=== PATIENT | female | born 2000 | race Caucasian/White ===

== ENCOUNTER 2021-03-09 21:44 | Emergency (ER) | payer MEDICAID ==
--- NOTE | 2021-03-09 21:48 | ERPHSYRPT ---
- History of Present Illness Time Seen by Provider: 03/09/21 21:48 Source: patient Exam Limitations: no limitations Physician History: This is a 20-year-old white female who coughed really hard last week and noticed some right lateral rib pain. The pain has been intermittent bad. Today it was the worst and she felt as though the pain should be getting better. She has been exposed to individuals with viral infections. She is not particularly short of breath. Timing/Duration: week(s) (1), intermittent, worse Cough Quality/Degree: mild, dry cough Possible Cause: no prior episodes Modifying Factors: Improves With: deep breath Associated Symptoms: cough Allergies/Adverse Reactions: No Known Drug Allergies Allergy (Unverified 03/09/21 22:11) Travel Risk - International Travel Have you traveled outside of the country in past 3 weeks: No - Coronavirus Screening Are you exhibiting any of the following symptoms?: Yes Symptoms: Cough: New Onset Close contact with a COVID-19 positive Pt in past 14-21 Days: Yes - Review of Systems Constitutional: No Symptoms Eyes: No Symptoms Ears, Nose, & Throat: No Symptoms Respiratory: Cough Cardiac: No Symptoms Abdominal/Gastrointestinal: No Symptoms Genitourinary Symptoms: No Symptoms Musculoskeletal: Other (Right lateral rib pain) Skin: No Symptoms Neurological: No Symptoms Psychological: No Symptoms Endocrine: No Symptoms Hematologic/Lymphatic: No Symptoms Immunological/Allergic: No Symptoms All Other Systems: Reviewed and Negative - Past Medical History Pertinent Past Medical History: Yes - Past Surgical History Past Surgical History: Yes - Nursing Vital Signs Nursing Vital Signs: Initial Vital Signs Temperature 98.4 F 03/09/21 22:11 Pulse Rate 100 H 03/09/21 22:11 Respiratory Rate 22 03/09/21 22:11 Blood Pressure 118/62 03/09/21 22:11 O2 Sat by Pulse Oximetry 100 03/09/21 22:11 Pain Scale Pain Intensity 4 - Physical Exam General Appearance: no apparent distress, alert, anxiety Eye Exam: PERRL/EOMI, eyes nml inspection Ears, Nose, Throat Exam: normal ENT inspection, moist mucous membranes Neck Exam: normal inspection, non-tender, supple, full range of motion Respiratory Exam: normal breath sounds, lungs clear, airway intact, No chest tenderness, No respiratory distress Cardiovascular Exam: regular rate/rhythm, normal heart sounds, normal peripheral pulses Gastrointestinal/Abdomen Exam: soft, normal bowel sounds, No tenderness Pelvic Exam: not done Rectal Exam: not done Back Exam: normal inspection, normal range of motion, No CVA tenderness, No vertebral tenderness Extremity Exam: normal inspection, normal range of motion, pelvis stable Neurologic Exam: alert, oriented x 3, cooperative, kettle cook II-XII nml as tested, sensation nml, No normal mood/affect, No nml cerebellar function, No nml station & gait Skin Exam: normal color, warm, dry Lymphatic Exam: No adenopathy SpO2 Interpretation: normal O2 Delivery: Room Air - Course Nursing assessment & vital signs reviewed: Yes Ordered Tests: Active Orders 24 hr Category Date Time Status CHEST 1 VIEW (PORTABLE) Stat Exams 03/09/21 23:13 Taken COVID AG-BINAX NOW RAPID TEST Stat Lab 03/09/21 22:15 Completed HCG,QUALITATIVE URINE Stat Lab 03/09/21 22:46 Completed INFLUENZA A+B FIDELINA Stat Lab 03/09/21 22:15 Completed UA W/RFX UR CULTURE Stat Lab 03/09/21 22:46 Completed Medication Summary Discontinued Medications Generic Name Dose Route Start Last Admin Trade Name Lauro PRN Reason Stop Dose Admin Trimethoprim/Sulfamethoxazole 1 tab 03/09/21 23:05 03/09/21 23:11 Smz/Tmp Ds Tablet 1 Tablet PO 03/09/21 23:06 1 tab STAT ONE Administration Trimethoprim/Sulfamethoxazole Confirm 03/09/21 23:10 Smz/Tmp Ds Tablet 1 Tablet Administered 03/09/21 23:11 Dose 1 tab PO .STK-MED ONE Lab/Rad Data: Laboratory Results 03/09/21 03/09/21 03/09/21 Range/Units 22:46 22:46 22:15 Urine Color YELLOW (YELLOW) Urine Appearance CLOUDY (CLEAR) Urine pH 6.0 (5-6) Ur Specific [place] 1.012 (1.005-1.025) Urine Protein NEGATIVE (Negative) Urine Ketones NEGATIVE (NEGATIVE) Urine Blood NEGATIVE (0-5) Drew/ul Urine Nitrite NEGATIVE (NEGATIVE) Urine Bilirubin NEGATIVE (NEGATIVE) Urine Urobilinogen 2 (0-1) mg/dL Ur Leukocyte Esterase LARGE (NEGATIVE) Urine WBC (Auto) 16-25 (0-5) /HPF Urine RBC (Auto) 0-2 (0-2) /HPF U Epithel Cells (Auto) FEW (FEW) /HPF Urine Bacteria (Auto) NONE (NEGATIVE) /HPF Urine Mucus (Auto) SLIGHT (NEGATIVE) /HPF Urine Culture Reflexed NO (NO) Urine Glucose NEGATIVE (NEGATIVE) mg/dL Urine HCG, Qual NEGATIVE (Negative) Influenza Type A Ag (NEGATIVE) Influenza Type B Ag (NEGATIVE) SARS-CoV-2 Ag (Rapid) (NEGATIVE) Group A Strep Antibody NOT DETECTED (NEGATIVE) 03/09/21 Range/Units 22:15 Urine Color (YELLOW) Urine Appearance (CLEAR) Urine pH (5-6) Ur Specific [place] (1.005-1.025) Urine Protein (Negative) Urine Ketones (NEGATIVE) Urine Blood (0-5) Drew/ul Urine Nitrite (NEGATIVE) Urine Bilirubin (NEGATIVE) Urine Urobilinogen (0-1) mg/dL Ur Leukocyte Esterase (NEGATIVE) Urine WBC (Auto) (0-5) /HPF Urine RBC (Auto) (0-2) /HPF U Epithel Cells (Auto) (FEW) /HPF Urine Bacteria (Auto) (NEGATIVE) /HPF Urine Mucus (Auto) (NEGATIVE) /HPF Urine Culture Reflexed (NO) Urine Glucose (NEGATIVE) mg/dL Urine HCG, Qual (Negative) Influenza Type A Ag NEGATIVE (NEGATIVE) Influenza Type B Ag NEGATIVE (NEGATIVE) SARS-CoV-2 Ag (Rapid) NEGATIVE (NEGATIVE) Group A Strep Antibody (NEGATIVE) - Progress Progress: unchanged Air Movement: good Progress Note: 03/09/21 23:50 Chest x-ray shows no acute cardiopulmonary process. Blood Culture(s) Obtained: No Antibiotics given: Yes Counseled pt/family regarding: lab results, diagnosis, need for follow-up, rad results - Departure Departure Disposition: Home Clinical Impression: UTI (urinary tract infection) Condition: Stable Critical Care Time: No Additional Instructions: Drink plenty of fluids. Use Tylenol ibuprofen for pain control. Follow-up with your primary care physician for persistent symptoms. Prescriptions: Smz/Tmp Ds Tablet [Bactrim Ds Tablet] 1 udtab PO BID #14 tablet
[2021-03-09 22:46] LABS: INFLUENZA A NEGATIVE (NEGATIVE); INFLUENZA B NEGATIVE (NEGATIVE)
[2021-03-09 22:47] LABS: COVID AG -BINAX NOW RAPID TEST NEGATIVE (NEGATIVE)
[2021-03-09 23:00] LABS: Appearance CLOUDY (CLEAR); Bilirubin NEGATIVE (NEGATIVE); Blood NEGATIVE Ery/ul (0-5); Epithelial Cells FEW /HPF (FEW); Glucose NEGATIVE (NEGATIVE); Ketones NEGATIVE (NEGATIVE); Leukocyte Esterase LARGE (NEGATIVE); Mucus SLIGHT /HPF (NEGATIVE); Nitrite NEGATIVE (NEGATIVE); Protein,Urine Dip NEGATIVE (Negative); RBC 0-2 /HPF (0-2); Specific Gravity 1.012 (1.005-1.025); Urobilinogen 2 mg/dL (0-1)
[2021-03-09] MEDS ORDERED: BACTRIM DS TABLET PO ONE ×2 (23:05→23:10)
[2021-03-09 23:10] VITALS: O2SAT 99
[2021-03-10 00:05] VITALS: BP 106/71; PULSE 67
--- NOTE | 2021-03-10 08:50 | XRAY ---
Indication: Cough. Suspect Covid 19. Comparison: None Portable chest demonstrates normal heart, lungs, and bony thorax with a few incidental tiny calcified granulomas.
[2021-03-10] MEDS ORDERED: DIFLUCAN PO SCH (10:00)
== END 2021-03-10 00:16 | disposition home or self-care (01) ==
LOC: ED 21:44
DX: N39.0 Urinary tract infection, site not specified (principal); R07.81 Pleurodynia; R05.9 Cough, unspecified
CPT/HCPCS: 71045; 81001; 84703; 87400; 87651; 99000; 99284; A9270-GY

== ENCOUNTER 2021-07-20 06:36 | Observation (INO) | payer MEDICAID ==
[2021-07-20 07:27] LABS: Bacteria MODERATE /HPF (NEGATIVE); Epithelial Cells RARE /HPF (FEW); Mucus SLIGHT /HPF (NEGATIVE)
[2021-07-20 07:31] LABS: Appearance CLOUDY (CLEAR); Bilirubin NEGATIVE (NEGATIVE); Dipstick done @ ? MAIN LAB; Glucose NEGATIVE (NEGATIVE); Ketones NEGATIVE (NEGATIVE); Nitrite NEGATIVE (NEGATIVE); Ph 7.5 (5-6); Protein,Urine Dip TRACE (Negative); RBC TRACE-INTACT Ery/ul (0-5); Specific Gravity >=1.030 (1.005-1.025); Urobilinogen 0.2 mg/dL (0-1)
[2021-07-20 07:33] LABS: Urine Cultured Indicated? YES
[2021-07-20] MEDS ORDERED: TORAdol 30 mg Injection IV ONE (08:02)
[2021-07-20] MEDS ORDERED: Zofran 4 MG/2 ML VIAL IV ONE (08:02)
[2021-07-20] MEDS ORDERED: Sodium Chloride 0.9% 1000 ML 1,000 ML IV STA (08:02)
--- NOTE | 2021-07-20 08:08 | ERPHSYRPT ---
- History of Present Illness Time Seen by Provider: 07/20/21 07:15 Source: patient Exam Limitations: no limitations Patient Subjective Stated Complaint: dizziness x2 days off and on, flank pain Triage Nursing Assessment: pt c/o dizziness off and on since Monday, flank pain bilat, frequent urination, headache, body aches and fatigue. Pt denies cough, sob, nausea, but vomited x1 yesterday. Physician History: Patient is an 19-year-old female presents to emergency department with multiple complaints. Patient complains of of dizziness, headache vomiting fatigue nausea myalgias and bilateral flank pain. Symptoms started approximately 2 days ago. Symptoms are progressive. No trauma. No fever. Patient that she is otherwise healthy. No obvious sick contacts. Symptoms are mild to moderate in intensity. No specific worsening or improving factors. Patient voices no other complaints or concerns at this time. Timing/Duration: day(s) (2 days ago) Severity: moderate Modifying Factors: Improves With: nothing Associated Symptoms: nausea, vomiting (Patient vomited once yesterday. Vomit was nonbloody nonbilious), headaches, No shortness of breath, No cough, No fever, No syncope, No seizure Allergies/Adverse Reactions: sodium bicarbonate [From Nasa Mist] Adverse Reaction (Severe, Verified 07/20/21 06:52) sodium chloride [From Nasa Mist] Adverse Reaction (Severe, Verified 07/20/21 06:52) Home Medications: No Reportable Medications [No Reported Medications] 07/20/21 [History] Hx Tetanus, Diphtheria Vaccination/Date Given: Yes Hx Influenza Vaccination/Date Given: No Hx Pneumococcal Vaccination/Date Given: No Immunizations Up to Date: Yes Travel Risk - International Travel Have you traveled outside of the country in past 3 weeks: No - Coronavirus Screening Are you exhibiting any of the following symptoms?: Yes Symptoms: Vomiting/Diarrhea, Headaches/Body Aches/Fatigue Close contact with a COVID-19 positive Pt in past 14-21 Days: No - Vaccine Status Have you recieved a Covid-19 vaccination: No - Review of Systems Constitutional: No Symptoms, No Fever, No Chills Eyes: No Symptoms Ears, Nose, & Throat: No Symptoms Respiratory: No Symptoms, No Cough, No Dyspnea Cardiac: No Symptoms, No Chest Pain, No Edema, No Syncope Abdominal/Gastrointestinal: No Symptoms, No Abdominal Pain, No Nausea, No Vomiting, No Diarrhea Genitourinary Symptoms: No Symptoms, No Dysuria Musculoskeletal: No Symptoms, No Back Pain, No Neck Pain Skin: No Symptoms, No Rash Neurological: No Symptoms, No Dizziness, No Focal Weakness, No Sensory Changes Psychological: No Symptoms Endocrine: No Symptoms Hematologic/Lymphatic: No Symptoms Immunological/Allergic: No Symptoms All Other Systems: Reviewed and Negative - Past Medical History Pertinent Past Medical History: Yes Neurological History: No Pertinent History ENT History: No Pertinent History Cardiac History: No Pertinent History Respiratory History: No Pertinent History Endocrine Medical History: No Pertinent History Musculoskeletal History: Fractures GI Medical History: No Pertinent History History: Other Psycho-Social History: Anxiety, Depression Female Reproductive Disorders: No Pertinent History - Past Surgical History Past Surgical History: Yes Musculoskeletal: Orthopedic Surgery Other Surgical History: rt ankle surgery, kidney stone removal - Social History Smoking Status: Current every day smoker How long have you smoked: 1 yr Exposure to second hand smoke: Yes Drug Use: none Patient Lives Alone: No - Female History Hx Last Menstrual Period: Jun, 2021 Hx Now: No - Nursing Vital Signs Nursing Vital Signs: Initial Vital Signs Temperature 98.9 F 07/20/21 06:43 Pulse Rate 99 H 07/20/21 06:43 Respiratory Rate 18 07/20/21 06:43 Blood Pressure 130/72 07/20/21 06:43 O2 Sat by Pulse Oximetry 98 07/20/21 06:43 Pain Scale Pain Intensity 4 - Physical Exam General Appearance: no apparent distress, alert Eye Exam: PERRL/EOMI, eyes nml inspection Ears, Nose, Throat Exam: normal ENT inspection, TMs normal, pharynx normal, moist mucous membranes Neck Exam: normal inspection, non-tender, supple, full range of motion Respiratory Exam: normal breath sounds, lungs clear, airway intact, No respiratory distress Cardiovascular Exam: regular rate/rhythm, normal heart sounds, normal peripheral pulses Gastrointestinal/Abdomen Exam: soft, normal bowel sounds, other (Mild bilateral flank tenderness to palpation. Vague generalized abdominal pain), No tenderness, No mass Back Exam: normal inspection, normal range of motion, No CVA tenderness, No vertebral tenderness Extremity Exam: normal inspection, normal range of motion, pelvis stable Neurologic Exam: alert, oriented x 3, cooperative, normal mood/affect, nml cer ebellar function, nml station & gait, sensation nml, No motor deficits Skin Exam: normal color, warm, dry, No rash Lymphatic Exam: No adenopathy SpO2 Interpretation: normal SpO2: 98 O2 Delivery: Room Air - Course Nursing assessment & vital signs reviewed: Yes - CT Exams Abdomen/Pelvis CT Interpretation: Tele-radiologist Report (Right renal lobar nephronia) Ordered Tests: Active Orders 24 hr Category Date Time Status CBC W DIFF AM.LAB Lab 07/21/21 04:25 Completed CMP AM.LAB Lab 07/21/21 04:25 Completed Medication Summary Generic Name Dose Route Start Last Admin Trade Name Freq PRN Reason Stop Dose Admin Acetaminophen 650 mg 07/20/21 13:18 07/22/21 01:32 Acetaminophen 325 Mg Tablet PO 08/19/21 13:17 650 mg Q4H PRN PRN Administration PAIN AND/OR FEVER Sodium Chloride 1,000 mls @ 100 mls/hr 07/20/21 13:18 07/21/21 20:10 Sodium Chloride 0.9% 1000 Ml IV 08/19/21 13:17 100 mls/hr .Q10H MARIANA Administration Ceftriaxone Sodium/Dextrose 1 g in 50 mls @ 100 mls/hr 07/21/21 10:00 07/21/21 09:08 Rocephin 1 Gm-D5w 50 Ml Bag IV 07/24/21 09:59 100 mls/hr Q24H10 MARIANA Administration Morphine Sulfate 5 mg 07/20/21 14:35 07/21/21 21:28 Morphine Sulfate 10 Mg/Ml Injection IV 07/25/21 14:34 5 mg Q4H PRN PRN Administration PAIN Ondansetron HCl 4 mg 07/20/21 13:18 07/21/21 13:15 Ondansetron Hcl 4 Mg/2 Ml Vial IV 08/19/21 13:17 4 mg Q6H PRN PRN Administration NAUSEA/VOMITING Discontinued Medications Generic Name Dose Route Start Last Admin Trade Name Freq PRN Reason Stop Dose Admin Sodium Chloride 1,000 mls @ 999 mls/hr 07/20/21 08:02 07/20/21 09:18 Sodium Chloride 0.9% 1000 Ml IV 07/20/21 09:02 Infused .Q1H1M STA Infusion Sodium Chloride Confirm 07/20/21 08:15 Sodium Chloride 0.9% 1000 Ml Administered 07/20/21 08:16 Dose 1,000 mls @ ud .ROUTE .STK-MED ONE Ceftriaxone Sodium/Dextrose 1 g in 50 mls @ 100 mls/hr 07/20/21 10:34 07/20/21 11:11 Rocephin 1 Gm-D5w 50 Ml Bag IV 07/20/21 11:03 Infused STAT STA Infusion Ceftriaxone Sodium/Dextrose Confirm 07/20/21 10:38 Rocephin 1 Gm-D5w 50 Ml Bag Administered 07/20/21 10:39 Dose 1 g in 50 mls @ ud IV .STK-MED ONE Ketorolac Tromethamine 30 mg 07/20/21 08:02 07/20/21 08:16 Ketorolac Tromethamine 30 Mg/Ml Inj IV 07/20/21 08:03 30 mg STAT ONE Administration Ketorolac Tromethamine Confirm 07/20/21 08:15 Ketorolac Tromethamine 30 Mg/Ml Inj Administered 07/20/21 08:16 Dose 30 mg .ROUTE .STK-MED ONE Morphine Sulfate 2 mg 07/20/21 10:43 07/20/21 10:49 Morphine Sulfate 2 Mg/Ml Inj IV 07/20/21 10:44 2 mg STAT ONE Administration Morphine Sulfate Confirm 07/20/21 10:48 Morphine Sulfate 2 Mg/Ml Inj Administered 07/20/21 10:49 Dose 2 mg .ROUTE .STK-MED ONE Nitrofurantoin Macrocrystals 100 mg 07/20/21 09:49 07/20/21 10:39 Nitrofurantoin Macro 100 Mg Capsule PO 07/20/21 09:50 Not Given STAT ONE Ondansetron HCl 4 mg 07/20/21 08:02 07/20/21 08:16 Ondansetron Hcl 4 Mg/2 Ml Vial IV 07/20/21 08:03 4 mg STAT ONE Administration Ondansetron HCl Confirm 07/20/21 08:15 Ondansetron Hcl 4 Mg/2 Ml Vial Administered 07/20/21 08:16 Dose 4 mg .ROUTE .STK-MED ONE Lab/Rad Data: Laboratory Result Diagrams 07/20/21 08:12 07/20/21 08:12 Laboratory Results 07/20/21 07/20/21 07/20/21 Range/Units 11:15 10:27 08:12 WBC (4.0-10.5) x10^3/uL RBC (4.1-5.4) x10^6/uL Hgb (12.0-16.0) g/dL Hct (35-47) % MCV (78-100) fL MCH (26-32) pg MCHC (32-36) g/dL RDW (11.5-14.0) % Plt Count (150-450) x10^3/uL MPV (7.5-11.0) fL Gran % (36.0-66.0) % Immature Gran % (Auto) (0.00-0.4) % Nucleat RBC Rel Count (0.00-0.1) % Eos # (Auto) (0-0.5) x10^3/uL Immature Gran # (Auto) (0.00-0.03) x10^3u/L Absolute Lymphs (auto) (1.0-4.6) x10^3/uL Absolute Monos (auto) (0.0-1.3) x10^3/uL Absolute Nucleated RBC (0.00-0.01) x10^3u/L Lymphocytes % (24.0-44.0) % Monocytes % (0.0-12.0) % Eosinophils % (0.00-5.0) % Basophils % (0.0-0.4) % Absolute Granulocytes (1.4-6.9) x10^3/uL Basophils # (0-0.4) x10^3/uL Sodium (137-145) mmol/L Potassium (3.5-5.1) mmol/L Chloride (98-107) mmol/L Carbon Dioxide (22-30) mmol/L Anion Gap (5-15) MEQ/L BUN (7-17) mg/dL Creatinine (0.52-1.04) mg/dL Estimated GFR ML/MIN Glucose (74-106) mg/dL Calcium (8.4-10.2) mg/dL Total Bilirubin (0.2-1.3) mg/dL AST (14-36) U/L ALT (0-35) U/L Alkaline Phosphatase (38-126) U/L Troponin I < 0.012 < 0.012 (0.000-0.034) ng/mL Serum Total Protein (6.3-8.2) g/dL Albumin (3.5-5.0) g/dL Lipase (23-300) U/L Urinalys Dipstick Clnc Urine Color (YELLOW) Urine Appearance (CLEAR) Urine pH (5-6) Ur Specific [place] (1.005-1.025) POC Urine Protein Conf (Negative) Urine Ketones (NEGATIVE) Urine Nitrite (NEGATIVE) Urine Bilirubin (NEGATIVE) Urine Urobilinogen (0-1) mg/dL Urine Leukocytes (NEGATIVE) Urine WBC (Auto) (0-5) /HPF Urine RBC (Auto) (0-2) /HPF U Epithel Cells (Auto) (FEW) /HPF Urine Bacteria (Auto) (NEGATIVE) /HPF Urine RBC (0-5) Drew/ul Urine Mucus (Auto) (NEGATIVE) /HPF Ur Culture Indicated? Urine Glucose (NEGATIVE) mg/dL Urine HCG, Qual (Negative) Urine Opiates Level (NEGATIVE) Ur Methadone (NEGATIVE) Urine Barbiturates (NEGATIVE) Ur Phencyclidine (PCP) (NEGATIVE) Urine Amphetamine (NEGATIVE) U Benzodiazepine Level (NEGATIVE) Urine Cocaine (NEGATIVE) Urine Marijuana (THC) (NEGATIVE) Influenza Type A Ag NEGATIVE (NEGATIVE) Influenza Type B Ag NEGATIVE (NEGATIVE) RSV (PCR) NEGATIVE (Negative) SARS-CoV-2 (PCR) NEGATIVE (NEGATIVE) 07/20/21 07/20/21 07/20/21 Range/Units 08:12 08:12 07:01 WBC 13.4 H (4.0-10.5) x10^3/uL RBC 4.34 (4.1-5.4) x10^6/uL Hgb 14.1 (12.0-16.0) g/dL Hct 42.5 (35-47) % MCV 97.9 (78-100) fL MCH 32.5 H (26-32) pg MCHC 33.2 (32-36) g/dL RDW 12.5 (11.5-14.0) % Plt Count 224 (150-450) x10^3/uL MPV 10.0 (7.5-11.0) fL Gran % 80.8 H (36.0-66.0) % Immature Gran % (Auto) 0.3 (0.00-0.4) % Nucleat RBC Rel Count 0.0 (0.00-0.1) % Eos # (Auto) 0.03 (0-0.5) x10^3/uL Immature Gran # (Auto) 0.04 H (0.00-0.03) x10^3u/L Absolute Lymphs (auto) 1.20 (1.0-4.6) x10^3/uL Absolute Monos (auto) 1.25 (0.0-1.3) x10^3/uL Absolute Nucleated RBC 0.00 (0.00-0.01) x10^3u/L Lymphocytes % 9.0 L (24.0-44.0) % Monocytes % 9.4 (0.0-12.0) % Eosinophils % 0.2 (0.00-5.0) % Basophils % 0.3 (0.0-0.4) % Absolute Granulocytes 10.80 H (1.4-6.9) x10^3/uL Basophils # 0.04 (0-0.4) x10^3/uL Sodium 137 (137-145) mmol/L Potassium 4.3 (3.5-5.1) mmol/L Chloride 104 (98-107) mmol/L Carbon Dioxide 25 (22-30) mmol/L Anion Gap 12.4 (5-15) MEQ/L BUN 8 (7-17) mg/dL Creatinine 0.62 (0.52-1.04) mg/dL Estimated GFR > 60.0 ML/MIN Glucose 99 (74-106) mg/dL Calcium 8.8 (8.4-10.2) mg/dL Total Bilirubin 1.10 (0.2-1.3) mg/dL AST 17 (14-36) U/L ALT 9 (0-35) U/L Alkaline Phosphatase 58 (38-126) U/L Troponin I (0.000-0.034) ng/mL Serum Total Protein 7.1 (6.3-8.2) g/dL Albumin 4.0 (3.5-5.0) g/dL Lipase 63 (23-300) U/L Urinalys Dipstick Clnc MAIN LAB Urine Color YELLOW (YELLOW) Urine Appearance CLOUDY (CLEAR) Urine pH 7.5 (5-6) Ur Specific [place] >=1.030 (1.005-1.025) POC Urine Protein Conf TRACE (Negative) Urine Ketones NEGATIVE (NEGATIVE) Urine Nitrite NEGATIVE (NEGATIVE) Urine Bilirubin NEGATIVE (NEGATIVE) Urine Urobilinogen 0.2 (0-1) mg/dL Urine Leukocytes SMALL (NEGATIVE) Urine WBC (Auto) 16-25 (0-5) /HPF Urine RBC (Auto) 6-10 (0-2) /HPF U Epithel Cells (Auto) RARE (FEW) /HPF Urine Bacteria (Auto) MODERATE (NEGATIVE) /HPF Urine RBC TRACE-INTACT (0-5) Drew/ul Urine Mucus (Auto) SLIGHT (NEGATIVE) /HPF Ur Culture Indicated? YES Urine Glucose NEGATIVE (NEGATIVE) mg/dL Urine HCG, Qual (Negative) Urine Opiates Level (NEGATIVE) Ur Methadone (NEGATIVE) Urine Barbiturates (NEGATIVE) Ur Phencyclidine (PCP) (NEGATIVE) Urine Amphetamine (NEGATIVE) U Benzodiazepine Level (NEGATIVE) Urine Cocaine (NEGATIVE) Urine Marijuana (THC) (NEGATIVE) Influenza Type A Ag (NEGATIVE) Influenza Type B Ag (NEGATIVE) RSV (PCR) (Negative) SARS-CoV-2 (PCR) (NEGATIVE) 07/20/21 07/20/21 Range/Units 07:00 06:57 WBC (4.0-10.5) x10^3/uL RBC (4.1-5.4) x10^6/uL Hgb (12.0-16.0) g/dL Hct (35-47) % MCV (78-100) fL MCH (26-32) pg MCHC (32-36) g/dL RDW (11.5-14.0) % Plt Count (150-450) x10^3/uL MPV (7.5-11.0) fL Gran % (36.0-66.0) % Immature Gran % (Auto) (0.00-0.4) % Nucleat RBC Rel Count (0.00-0.1) % Eos # (Auto) (0-0.5) x10^3/uL Immature Gran # (Auto) (0.00-0.03) x10^3u/L Absolute Lymphs (auto) (1.0-4.6) x10^3/uL Absolute Monos (auto) (0.0-1.3) x10^3/uL Absolute Nucleated RBC (0.00-0.01) x10^3u/L Lymphocytes % (24.0-44.0) % Monocytes % (0.0-12.0) % Eosinophils % (0.00-5.0) % Basophils % (0.0-0.4) % Absolute Granulocytes (1.4-6.9) x10^3/uL Basophils # (0-0.4) x10^3/uL Sodium (137-145) mmol/L Potassium (3.5-5.1) mmol/L Chloride (98-107) mmol/L Carbon Dioxide (22-30) mmol/L Anion Gap (5-15) MEQ/L BUN (7-17) mg/dL Creatinine (0.52-1.04) mg/dL Estimated GFR ML/MIN Glucose (74-106) mg/dL Calcium (8.4-10.2) mg/dL Total Bilirubin (0.2-1.3) mg/dL AST (14-36) U/L ALT (0-35) U/L Alkaline Phosphatase (38-126) U/L Troponin I (0.000-0.034) ng/mL Serum Total Protein (6.3-8.2) g/dL Albumin (3.5-5.0) g/dL Lipase (23-300) U/L Urinalys Dipstick Clnc Urine Color (YELLOW) Urine Appearance (CLEAR) Urine pH (5-6) Ur Specific [place] (1.005-1.025) POC Urine Protein Conf (Negative) Urine Ketones (NEGATIVE) Urine Nitrite (NEGATIVE) Urine Bilirubin (NEGATIVE) Urine Urobilinogen (0-1) mg/dL Urine Leukocytes (NEGATIVE) Urine WBC (Auto) (0-5) /HPF Urine RBC (Auto) (0-2) /HPF U Epithel Cells (Auto) (FEW) /HPF Urine Bacteria (Auto) (NEGATIVE) /HPF Urine RBC (0-5) Drew/ul Urine Mucus (Auto) (NEGATIVE) /HPF Ur Culture Indicated? Urine Glucose (NEGATIVE) mg/dL Urine HCG, Qual NEGATIVE (Negative) Urine Opiates Level NEGATIVE (NEGATIVE) Ur Methadone NEGATIVE (NEGATIVE) Urine Barbiturates NEGATIVE (NEGATIVE) Ur Phencyclidine (PCP) NEGATIVE (NEGATIVE) Urine Amphetamine NEGATIVE (NEGATIVE) U Benzodiazepine Level NEGATIVE (NEGATIVE) Urine Cocaine NEGATIVE (NEGATIVE) Urine Marijuana (THC) POSITIVE (NEGATIVE) Influenza Type A Ag (NEGATIVE) Influenza Type B Ag (NEGATIVE) RSV (PCR) (Negative) SARS-CoV-2 (PCR) (NEGATIVE) - Progress Progress: improved Progress Note: Patient reassessed. Pain improved. Work-up reveals a nephronia/nephritis/UTI. Antibiotics administered. Patient received a gram of Rocephin. Patient will require admission for further evaluation and treatment. Case discussed with Dr. Robles who accepts admission to observation. Plan of care discussed with benjamin gonzalez. She agrees to admission [facility] for further evaluation and treatment. Portions of this note were created with voice recognition technology. There may be grammatical, spelling, punctuation or sound alike errors 07/22/21 02:53 Discussed with : Chen Will see patient in: hospital (observation) Counseled pt/family regarding: lab results, diagnosis, rad results - Departure Departure Disposition: Observation Clinical Impression: Nephronia UTI (urinary tract infection) Qualifiers: Urinary tract infection type: acute cystitis Hematuria presence: with hematuria Qualified Code(s): N30.01 - Acute cystitis with hematuria Leukocytosis Qualifiers: Leukocytosis type: unspecified Qualified Code(s): D72.829 - Elevated white blood cell count, unspecified Condition: Stable Critical Care Time: No
[2021-07-20] MEDS ORDERED: Zofran 4 MG/2 ML VIAL ONE (08:15)
[2021-07-20] MEDS ORDERED: TORAdol 30 mg Injection ONE (08:15)
[2021-07-20] MEDS ORDERED: Sodium Chloride 0.9% 1000 ML 1,000 ML ONE (08:15)
[2021-07-20 08:31] LABS: Basophil (Absolute #) 0.04 x10^3/uL (0-0.4); Eosinophil % 0.2 % (0.00-5.0); Eosinophil (Absolute #) 0.03 x10^3/uL (0-0.5); Hematocrit 42.5 % (35-47); Hemoglobin 14.1 g/dL (12.0-16.0); Mean Cell Volume 97.9 fL (78-100); Mean Corpuscular Hemoglobin 32.5 pg (26-32); Mean Corpuscular Hgb Concent. 33.2 g/dL (32-36); Monocyte (Absolute #) 1.25 x10^3/uL (0.0-1.3); Monocytes % 9.4 % (0.0-12.0); Neutrophil % 80.8 % (36.0-66.0); Platelet Count 224 x10^3/uL (150-450); Red Blood Count 4.34 x10^6/uL (4.1-5.4); Red Cell Distribution Width 12.5 % (11.5-14.0); White Blood Count 13.4 x10^3/uL (4.0-10.5)
[2021-07-20 08:32] LABS: ALKALINE PHOSPHATASE 58 U/L (38-126); ANION GAP 12.4 MEQ/L (5-15); BLOOD UREA NITROGEN 8 mg/dL (7-17); CHLORIDE 104 mmol/L (98-107); Calcium 8.8 mg/dL (8.4-10.2); Carbon Dioxide 25 mmol/L (22-30); Creatinine 1 0.62 mg/dL (0.52-1.04); EST GLOMERULAR FILTRATION RATE > 60.0 ML/MIN; Glucose 99 mg/dL (74-106); LIPASE 63 U/L (23-300); Potassium 4.3 mmol/L (3.5-5.1); SGOT/AST 17 U/L (14-36); SGPT/ALT 9 U/L (0-35); SODIUM 137 mmol/L (137-145); Total Protein 7.1 g/dL (6.3-8.2)
--- NOTE | 2021-07-20 09:22 | XRAY ---
Indication: Right lower quadrant pain. Nausea and vomiting. Multiple contiguous axial images obtained through the abdomen and pelvis using 80 cc Isovue 370 contrast. Comparison: None Lung bases clear. Heart not enlarged. Noncontrasted stomach and bowel loops appear nonobstructed with normal appendix. No free fluid/air. Right mid kidney demonstrates small wedge-shaped focus of hypoattenuation favoring lobar nephronia. No free fluid/air. Remaining liver, gallbladder, pancreas, spleen, adrenal glands, kidneys, ureters, uterus, and aorta appear unremarkable. No pathologic retroperitoneal lymphadenopathy. Osseous structures intact. Impression: Right renal lobar nephronia. Remaining CT abdomen/pelvis with contrast exam is negative.
[2021-07-20] MEDS ORDERED: Macrobid 100MG Capsule PO ONE (09:49)
[2021-07-20] MEDS ORDERED: ROCEPHIN 1 Gm-D5w 50 ml Bag** 1 G/50 ML IVPB IV STA (10:34)
[2021-07-20] MEDS ORDERED: ROCEPHIN 1 Gm-D5w 50 ml Bag** 1 G/50 ML IVPB IV ONE (10:38)
[2021-07-20] MEDS ORDERED: MORPHINE SULFATE 2 MG INJ IV ONE (10:43)
[2021-07-20] MEDS ORDERED: MORPHINE SULFATE 2 MG INJ ONE (10:48)
[2021-07-20 12:11] LABS: INFLUENZA A NEGATIVE (NEGATIVE); INFLUENZA B NEGATIVE (NEGATIVE); RESPIRATORY SYNCTIAL VIRUS NEGATIVE (Negative); SARS-CoV-2 Xpert Express NEGATIVE (NEGATIVE)
[2021-07-20] MEDS ORDERED: Zofran 4 MG/2 ML VIAL IV PRN (13:18)
[2021-07-20] MEDS: TYLENOL 325 MG PO PRN (13:55)
[2021-07-20] MEDS: Sodium Chloride 0.9% 1000 ML 1,000 ML IV SCH ×2 (13:56→23:48)
[2021-07-20] MEDS: MORPHINE SULFATE 10 MG/ML IV PRN ×2 (14:52→20:23)
[2021-07-20 21:46] LABS: Amphetamine,Urine NEGATIVE (NEGATIVE); Barbiturate,Urine NEGATIVE (NEGATIVE); Benzodiazepine,Urine NEGATIVE (NEGATIVE); Cocaine,Urine NEGATIVE (NEGATIVE); Methadone,Urine NEGATIVE (NEGATIVE); Opiate,Urine NEGATIVE (NEGATIVE); PCP,Urine NEGATIVE (NEGATIVE); THC,Urine POSITIVE (NEGATIVE)
[2021-07-21] MEDS: MORPHINE SULFATE 10 MG/ML IV PRN ×5 (04:13→21:28)
[2021-07-21] MEDS: TYLENOL 325 MG PO PRN (04:14)
[2021-07-21 05:25] LABS: Absolute Neutrophil Ct (ANC) 7.23 x10^3/uL (1.4-6.9); Basophil (Absolute #) 0.03 x10^3/uL (0-0.4); Eosinophil % 0.4 % (0.00-5.0); Eosinophil (Absolute #) 0.04 x10^3/uL (0-0.5); Hemoglobin 12.5 g/dL (12.0-16.0); Lymphocyte (Absolute #) 2.05 x10^3/uL (1.0-4.6); Lymphocytes % 19.4 % (24.0-44.0); Mean Cell Volume 97.1 fL (78-100); Mean Corpuscular Hemoglobin 32.8 pg (26-32); Mean Corpuscular Hgb Concent. 33.8 g/dL (32-36); Mean Platelet Volume 10.5 fL (7.5-11.0); Monocyte (Absolute #) 1.21 x10^3/uL (0.0-1.3); Monocytes % 11.4 % (0.0-12.0); Neutrophil % 68.2 % (36.0-66.0); Platelet Count 177 x10^3/uL (150-450); Red Blood Count 3.81 x10^6/uL (4.1-5.4); Red Cell Distribution Width 12.4 % (11.5-14.0); White Blood Count 10.6 x10^3/uL (4.0-10.5)
[2021-07-21 05:48] LABS: ALBUMIN 2.8 g/dL (3.5-5.0); ALKALINE PHOSPHATASE 46 U/L (38-126); ANION GAP 9.7 MEQ/L (5-15); BLOOD UREA NITROGEN 7 mg/dL (7-17); CHLORIDE 106 mmol/L (98-107); Calcium 7.9 mg/dL (8.4-10.2); Carbon Dioxide 22 mmol/L (22-30); EST GLOMERULAR FILTRATION RATE > 60.0 ML/MIN; Glucose 91 mg/dL (74-106); Potassium 3.7 mmol/L (3.5-5.1); SGOT/AST 16 U/L (14-36); SGPT/ALT 8 U/L (0-35); SODIUM 134 mmol/L (137-145); Total Protein 5.5 g/dL (6.3-8.2)
--- NOTE | 2021-07-21 08:30 | PCM.HP ---
History of Present Illness - Chief Complaint Chief Complaint: Nephronia, urinary tract infection, flank pain History of Present Illness: is a 20 year old female pt of clinic at [place] with hx renal stones who was admitted through ER yesterday with UTI, leukocytosis, and nephronia. Sh yocasta started feeling ill 3d ago; was shopping in [employer] and had tunnel vision, had to sit down for about 30 min for it to resolve. The next day she was sore and just didn't feel well. She denies having had dysuria, but her urine has been really dark recently. Yesterday she had increased R flank and R lbp, 9/10, so came to ER. She was found to have 16-25 WBC in her urine. CT abd/pelvis with lobar nephronia on the R. This morning she had temp to 101.8. Otherwise her vital signs were stable. Denies nausea this morning. Pain is currently 2/10, she states feeling better when lying down. She did not sleep well overnight, but did sleep this morning some. As a child, she had and episode of nephrolithiasis at 10 yrs old (had to have stone removed from her urethra) and 14 years old (had bilateral stones removed; was admitted at [facility]). She was told at that time that she still had "flakes" that could evolve into larger stones. - Review of Systems Constitutional: Fever Abdominal/Gastrointestinal: Nausea Genitourinary Symptoms: Flank Pain Musculoskeletal: Myalgias Neurological: Dizziness Psychological: Anxiety (chronic, but seems to be ok here per pt) All Other Systems: Reviewed and Negative Medications & Allergies Home Medications: Home Medication List No Reportable Medications [No Reported Medications] 07/20/21 [History Confirmed 07/20/21] Allergies/Adverse Reactions: Allergies Allergy/AdvReac Type Severity Reaction Status Date / Time sodium bicarbonate AdvReac Severe Verified 07/20/21 06:52 [From Nasa Mist] sodium chloride AdvReac Severe Verified 07/20/21 06:52 [From Nasa Mist] - Past Medical History Past Medical History: Yes Neurological History: No Pertinent History ENT History: No Pertinent History Cardiac History: No Pertinent History Respiratory History: No Pertinent History Endocrine Medical History: No Pertinent History Musculoskelatal History: Fractures GI Medical History: No Pertinent History History: Other Pyscho-Social History: Anxiety, Depression Reproductive Disorders: No Pertinent History, Menstrual Problems Comment: kidney stones as child - Female History Hx Last Menstrual Period: early Jun, 2021 Are you now?: No - Past Surgical History Past Surgical History: Yes Musculskeletal Surgical Hx: Orthopedic Surgery Other Surgical History: rt ankle surgery, kidney stone removal - Social History Smoking Status: Current every day smoker How long have you smoked: 1 yr Exposure to second hand smoke: Yes Alcohol: None, Rarely Drug Use: none - Physical Exam Vital Signs: Vital Signs - 24 hr Temp Pulse Resp BP Pulse Ox 07/21/21 07:27 99.0 F 65 10 L 112/63 98 07/21/21 04:00 101.8 F 85 16 121/68 98 07/21/21 00:00 99.1 F 81 22 105/51 97 07/20/21 21:00 98.9 F 79 21 107/69 98 07/20/21 16:20 98/53 07/20/21 16:00 98.7 F 81 20 111/68 98 07/20/21 13:09 98.7 F 81 20 111/68 98 07/20/21 12:06 97.5 F 66 20 94/53 98 07/20/21 11:04 97.9 F 80 20 104/63 98 07/20/21 10:43 98 07/20/21 10:10 98.4 F 78 20 128/70 98 07/20/21 09:20 79 20 117/71 97 07/20/21 08:50 85 18 117/71 98 General Appearance: no apparent distress, alert Neurologic Exam: oriented x 3, cooperative Eye Exam: eyes nml inspection Ears, Nose, Throat Exam: moist mucous membranes Neck Exam: normal inspection Respiratory Exam: normal breath sounds, lungs clear, No crackles/rales, No rhonchi, No wheezing Cardiovascular Exam: regular rate/rhythm, normal heart sounds, No murmur Gastrointestinal/Abdomen Exam: soft, normal bowel sounds, tenderness (RUQ), No distention, No mass, No guarding, No rebound Back Exam: normal inspection, CVA tenderness (bilat; R sided pain even with percussion on the L), No rash Extremity Exam: normal inspection, No pedal edema, No swelling Skin Exam: normal color, warm, dry, No rash Results - Labs Lab/Micro Results: Lab Results-Last 24 Hours 07/20/21 07/20/21 07/20/21 Range/Units 06:57 08:12 08:12 WBC 13.4 H (4.0-10.5) x10^3/uL RBC 4.34 (4.1-5.4) x10^6/uL Hgb 14.1 (12.0-16.0) g/dL Hct 42.5 (35-47) % MCV 97.9 (78-100) fL MCH 32.5 H (26-32) pg MCHC 33.2 (32-36) g/dL RDW 12.5 (11.5-14.0) % Plt Count 224 (150-450) x10^3/uL MPV 10.0 (7.5-11.0) fL Gran % 80.8 H (36.0-66.0) % Immature Gran % (Auto) 0.3 (0.00-0.4) % Nucleat RBC Rel Count 0.0 (0.00-0.1) % Eos # (Auto) 0.03 (0-0.5) x10^3/uL Immature Gran # (Auto) 0.04 H (0.00-0.03) x10^3u/L Absolute Lymphs (auto) 1.20 (1.0-4.6) x10^3/uL Absolute Monos (auto) 1.25 (0.0-1.3) x10^3/uL Absolute Nucleated RBC 0.00 (0.00-0.01) x10^3u/L Lymphocytes % 9.0 L (24.0-44.0) % Monocytes % 9.4 (0.0-12.0) % Eosinophils % 0.2 (0.00-5.0) % Basophils % 0.3 (0.0-0.4) % Absolute Granulocytes 10.80 H (1.4-6.9) x10^3/uL Basophils # 0.04 (0-0.4) x10^3/uL Sodium 137 (137-145) mmol/L Potassium 4.3 (3.5-5.1) mmol/L Chloride 104 (98-107) mmol/L Carbon Dioxide 25 (22-30) mmol/L Anion Gap 12.4 (5-15) MEQ/L BUN 8 (7-17) mg/dL Creatinine 0.62 (0.52-1.04) mg/dL Estimated GFR > 60.0 ML/MIN Glucose 99 (74-106) mg/dL Calcium 8.8 (8.4-10.2) mg/dL Total Bilirubin 1.10 (0.2-1.3) mg/dL AST 17 (14-36) U/L ALT 9 (0-35) U/L Alkaline Phosphatase 58 (38-126) U/L Troponin I (0.000-0.034) ng/mL Serum Total Protein 7.1 (6.3-8.2) g/dL Albumin 4.0 (3.5-5.0) g/dL Lipase 63 (23-300) U/L Urine Opiates Level NEGATIVE (NEGATIVE) Ur Methadone NEGATIVE (NEGATIVE) Urine Barbiturates NEGATIVE (NEGATIVE) Ur Phencyclidine (PCP) NEGATIVE (NEGATIVE) Urine Amphetamine NEGATIVE (NEGATIVE) U Benzodiazepine Level NEGATIVE (NEGATIVE) Urine Cocaine NEGATIVE (NEGATIVE) Urine Marijuana (THC) POSITIVE (NEGATIVE) Influenza Type A Ag (NEGATIVE) Influenza Type B Ag (NEGATIVE) RSV (PCR) (Negative) SARS-CoV-2 (PCR) (NEGATIVE) 07/20/21 07/20/21 07/20/21 Range/Units 08:12 10:27 11:15 WBC (4.0-10.5) x10^3/uL RBC (4.1-5.4) x10^6/uL Hgb (12.0-16.0) g/dL Hct (35-47) % MCV (78-100) fL MCH (26-32) pg MCHC (32-36) g/dL RDW (11.5-14.0) % Plt Count (150-450) x10^3/uL MPV (7.5-11.0) fL Gran % (36.0-66.0) % Immature Gran % (Auto) (0.00-0.4) % Nucleat RBC Rel Count (0.00-0.1) % Eos # (Auto) (0-0.5) x10^3/uL Immature Gran # (Auto) (0.00-0.03) x10^3u/L Absolute Lymphs (auto) (1.0-4.6) x10^3/uL Absolute Monos (auto) (0.0-1.3) x10^3/uL Absolute Nucleated RBC (0.00-0.01) x10^3u/L Lymphocytes % (24.0-44.0) % Monocytes % (0.0-12.0) % Eosinophils % (0.00-5.0) % Basophils % (0.0-0.4) % Absolute Granulocytes (1.4-6.9) x10^3/uL Basophils # (0-0.4) x10^3/uL Sodium (137-145) mmol/L Potassium (3.5-5.1) mmol/L Chloride (98-107) mmol/L Carbon Dioxide (22-30) mmol/L Anion Gap (5-15) MEQ/L BUN (7-17) mg/dL Creatinine (0.52-1.04) mg/dL Estimated GFR ML/MIN Glucose (74-106) mg/dL Calcium (8.4-10.2) mg/dL Total Bilirubin (0.2-1.3) mg/dL AST (14-36) U/L ALT (0-35) U/L Alkaline Phosphatase (38-126) U/L Troponin I < 0.012 < 0.012 (0.000-0.034) ng/mL Serum Total Protein (6.3-8.2) g/dL Albumin (3.5-5.0) g/dL Lipase (23-300) U/L Urine Opiates Level (NEGATIVE) Ur Methadone (NEGATIVE) Urine Barbiturates (NEGATIVE) Ur Phencyclidine (PCP) (NEGATIVE) Urine Amphetamine (NEGATIVE) U Benzodiazepine Level (NEGATIVE) Urine Cocaine (NEGATIVE) Urine Marijuana (THC) (NEGATIVE) Influenza Type A Ag NEGATIVE (NEGATIVE) Influenza Type B Ag NEGATIVE (NEGATIVE) RSV (PCR) NEGATIVE (Negative) SARS-CoV-2 (PCR) NEGATIVE (NEGATIVE) 07/21/21 07/21/21 Range/Units 04:25 04:25 WBC 10.6 H (4.0-10.5) x10^3/uL RBC 3.81 L (4.1-5.4) x10^6/uL Hgb 12.5 (12.0-16.0) g/dL Hct 37.0 (35-47) % MCV 97.1 (78-100) fL MCH 32.8 H (26-32) pg MCHC 33.8 (32-36) g/dL RDW 12.4 (11.5-14.0) % Plt Count 177 (150-450) x10^3/uL MPV 10.5 (7.5-11.0) fL Gran % 68.2 H (36.0-66.0) % Immature Gran % (Auto) 0.3 (0.00-0.4) % Nucleat RBC Rel Count 0.0 (0.00-0.1) % Eos # (Auto) 0.04 (0-0.5) x10^3/uL Immature Gran # (Auto) 0.03 (0.00-0.03) x10^3u/L Absolute Lymphs (auto) 2.05 (1.0-4.6) x10^3/uL Absolute Monos (auto) 1.21 (0.0-1.3) x10^3/uL Absolute Nucleated RBC 0.00 (0.00-0.01) x10^3u/L Lymphocytes % 19.4 L (24.0-44.0) % Monocytes % 11.4 (0.0-12.0) % Eosinophils % 0.4 (0.00-5.0) % Basophils % 0.3 (0.0-0.4) % Absolute Granulocytes 7.23 H (1.4-6.9) x10^3/uL Basophils # 0.03 (0-0.4) x10^3/uL Sodium 134 L (137-145) mmol/L Potassium 3.7 (3.5-5.1) mmol/L Chloride 106 (98-107) mmol/L Carbon Dioxide 22 (22-30) mmol/L Anion Gap 9.7 (5-15) MEQ/L BUN 7 (7-17) mg/dL Creatinine 0.50 L (0.52-1.04) mg/dL Estimated GFR > 60.0 ML/MIN Glucose 91 (74-106) mg/dL Calcium 7.9 L (8.4-10.2) mg/dL Total Bilirubin 1.00 (0.2-1.3) mg/dL AST 16 (14-36) U/L ALT 8 (0-35) U/L Alkaline Phosphatase 46 (38-126) U/L Troponin I (0.000-0.034) ng/mL Serum Total Protein 5.5 L (6.3-8.2) g/dL Albumin 2.8 L (3.5-5.0) g/dL Lipase (23-300) U/L Urine Opiates Level (NEGATIVE) Ur Methadone (NEGATIVE) Urine Barbiturates (NEGATIVE) Ur Phencyclidine (PCP) (NEGATIVE) Urine Amphetamine (NEGATIVE) U Benzodiazepine Level (NEGATIVE) Urine Cocaine (NEGATIVE) Urine Marijuana (THC) (NEGATIVE) Influenza Type A Ag (NEGATIVE) Influenza Type B Ag (NEGATIVE) RSV (PCR) (Negative) SARS-CoV-2 (PCR) (NEGATIVE) - Radiology Impressions Radiology Exams & Impressions: Radiology Procedures Category Date Time Status ABDOMEN AND PELVIS W CONTRAST [CT] Stat Exams 07/20/21 08:03 Completed Assessment/Plan (1) UTI (urinary tract infection) Current Visit: Yes Status: Acute Qualifiers: Urinary tract infection type: acute cystitis Hematuria presence: with hematuria Qualified Code(s): N30.01 - Acute cystitis with hematuria Assessment & Plan: Culture is pending. On rocephin IV day #2. Will keep pt until she is both afebrile x 24h and culture results are in. She does have a hx of renal stones, but I spoke with Dr. Wade and he reviewed the imaging and states that there are no stones present. Code(s): N39.0 - URINARY TRACT INFECTION, SITE NOT SPECIFIED (2) nephronia Current Visit: Yes Status: Acute (3) Leukocytosis Current Visit: Yes Status: Acute Qualifiers: Leukocytosis type: unspecified Qualified Code(s): D72.829 - Elevated white blood cell count, unspecified Assessment & Plan: improved today, down to 10.6 from 13.4. Code(s): D72.829 - ELEVATED WHITE BLOOD CELL COUNT, UNSPECIFIED
[2021-07-21] MEDS: ROCEPHIN 1 Gm-D5w 50 ml Bag** 1 G/50 ML IVPB IV SCH (09:08)
[2021-07-21] MEDS: Sodium Chloride 0.9% 1000 ML 1,000 ML IV SCH ×2 (10:11→20:10)
[2021-07-22] MEDS: TYLENOL 325 MG PO PRN (01:32)
[2021-07-22 02:56] VITALS: O2SAT 98
[2021-07-22] MEDS: MORPHINE SULFATE 10 MG/ML IV PRN (03:05)
[2021-07-22 05:11] LABS: Basophil (Absolute #) 0.03 x10^3/uL (0-0.4); Eosinophil % 2.8 % (0.00-5.0); Eosinophil (Absolute #) 0.23 x10^3/uL (0-0.5); Hematocrit 34.9 % (35-47); Hemoglobin 11.6 g/dL (12.0-16.0); Lymphocytes % 32.4 % (24.0-44.0); Mean Cell Volume 96.9 fL (78-100); Mean Corpuscular Hemoglobin 32.2 pg (26-32); Mean Corpuscular Hgb Concent. 33.2 g/dL (32-36); Mean Platelet Volume 9.9 fL (7.5-11.0); Monocyte (Absolute #) 1.05 x10^3/uL (0.0-1.3); Monocytes % 12.6 % (0.0-12.0); Neutrophil % 51.6 % (36.0-66.0); Platelet Count 175 x10^3/uL (150-450); Red Cell Distribution Width 12.3 % (11.5-14.0); White Blood Count 8.3 x10^3/uL (4.0-10.5)
[2021-07-22 05:40] LABS: ANION GAP 8.1 MEQ/L (5-15); BLOOD UREA NITROGEN 4 mg/dL (7-17); CHLORIDE 107 mmol/L (98-107); Carbon Dioxide 25 mmol/L (22-30); Creatinine 1 0.49 mg/dL (0.52-1.04); EST GLOMERULAR FILTRATION RATE > 60.0 ML/MIN; Glucose 92 mg/dL (74-106); Potassium 3.7 mmol/L (3.5-5.1); SODIUM 136 mmol/L (137-145)
[2021-07-22] MEDS: Sodium Chloride 0.9% 1000 ML 1,000 ML IV SCH (06:26)
[2021-07-22 07:37] VITALS: BP 109/74; PULSE 72
--- NOTE | 2021-07-22 08:37 | PCM.DS ---
Discharge Summary Date of Admission: 07/20/21 13:01 Admitting Physician: JOO STAPLETON Primary Care Provider: NO FAMILY DOCTOR Allergies Allergies sodium bicarbonate [From Nasa Mist] Adverse Reaction (Severe, Verified 07/20/21 06:52) sodium chloride [From Nasa Mist] Adverse Reaction (Severe, Verified 07/20/21 06:52) Hospital Summary - Hospital Course Hospital Course: Pt is a 20 yo female pt with no local MD and hx renal stones who was admitted to ER with UTI and nephronia. She had fever to 101.8 and R flank pain. Was started on IV rocephin. Urine culture positive for E.coli, pansusceptible. Flank pain this morning is 3/10. She is feeling okay. She is tolerating po. Will be discharged to home on bactrim po x 7d. Will follow up with me in the office in 1 week. - Vitals & Intake/Output Vital Signs: Vital Signs Temperature 97.9 F 07/22/21 07:36 Pulse Rate 72 07/22/21 07:36 Respiratory Rate 16 07/22/21 07:36 Blood Pressure 109/74 07/22/21 07:36 O2 Sat by Pulse Oximetry 98 07/22/21 07:36 Intake & Output: Intake & Output 07/19/21 07/20/21 07/21/21 07/22/21 11:59 11:59 11:59 11:59 Intake Total 4482 4471 Output Total 1200 3100 Balance 3282 1371 Weight 61.6 kg 62.2 kg - Lab Result Diagrams: 07/22/21 04:20 07/22/21 04:20 Lab Results-Last 24 Hrs: Lab Results-Last 24 Hours 07/22/21 07/22/21 Range/Units 04:20 04:20 WBC 8.3 (4.0-10.5) x10^3/uL RBC 3.60 L (4.1-5.4) x10^6/uL Hgb 11.6 L (12.0-16.0) g/dL Hct 34.9 L (35-47) % MCV 96.9 (78-100) fL MCH 32.2 H (26-32) pg MCHC 33.2 (32-36) g/dL RDW 12.3 (11.5-14.0) % Plt Count 175 (150-450) x10^3/uL MPV 9.9 (7.5-11.0) fL Gran % 51.6 (36.0-66.0) % Immature Gran % (Auto) 0.2 (0.00-0.4) % Nucleat RBC Rel Count 0.0 (0.00-0.1) % Eos # (Auto) 0.23 (0-0.5) x10^3/uL Immature Gran # (Auto) 0.02 (0.00-0.03) x10^3u/L Absolute Lymphs (auto) 2.70 (1.0-4.6) x10^3/uL Absolute Monos (auto) 1.05 (0.0-1.3) x10^3/uL Absolute Nucleated RBC 0.00 (0.00-0.01) x10^3u/L Lymphocytes % 32.4 (24.0-44.0) % Monocytes % 12.6 H (0.0-12.0) % Eosinophils % 2.8 (0.00-5.0) % Basophils % 0.4 (0.0-0.4) % Absolute Granulocytes 4.30 (1.4-6.9) x10^3/uL Basophils # 0.03 (0-0.4) x10^3/uL Sodium 136 L (137-145) mmol/L Potassium 3.7 (3.5-5.1) mmol/L Chloride 107 (98-107) mmol/L Carbon Dioxide 25 (22-30) mmol/L Anion Gap 8.1 (5-15) MEQ/L BUN 4 L (7-17) mg/dL Creatinine 0.49 L (0.52-1.04) mg/dL Estimated GFR > 60.0 ML/MIN Glucose 92 (74-106) mg/dL Calcium 8.0 L (8.4-10.2) mg/dL Micro Results-Entire Visit: Microbiology 07/20/21 07:01 Urine Culture - Final Clean Catch Midstream Escherichia Coli - Radiology Exams Ordered Rad Exams-Entire Visit: Radiology Procedures Category Date Time Status ABDOMEN AND PELVIS W CONTRAST [CT] Stat Exams 07/20/21 08:03 Completed Discharge Exam General Appearance: no apparent distress, alert Neurologic Exam: oriented x 3, cooperative Eye Exam: eyes nml inspection Ears, Nose, Throat Exam: moist mucous membranes Neck Exam: normal inspection Respiratory Exam: normal breath sounds, lungs clear, No crackles/rales, No rhonchi, No wheezing Cardiovascular Exam: regular rate/rhythm, normal heart sounds, No murmur Gastrointestinal/Abdomen Exam: soft, tenderness (mild RUQ), No normal bowel sounds (hypoactive but present), No distention, No mass, No guarding, No rebound Back Exam: CVA tenderness (on R) Extremity Exam: normal inspection, No pedal edema, No swelling Skin Exam: normal color, warm, dry, No rash Final Diagnosis/Problem List - Final Discharge Diagnosis/Problem (1) UTI (urinary tract infection) Current Visit: Yes Status: Acute Assessment & Plan: Has been on rocephin, day #3 today, to which the infection is susceptible. E. coli. Home on Bactrim. Advised pt if any rash stop the med and let me know KASSI. I also advised pt that if any fever, vomiting, increase in flank pain, or feeling worse, she needs to return to hospital KASSI. Code(s): N39.0 - URINARY TRACT INFECTION, SITE NOT SPECIFIED (2) nephronia Current Visit: Yes Status: Acute (3) Leukocytosis Current Visit: Yes Status: Resolved Code(s): D72.829 - ELEVATED WHITE BLOOD CELL COUNT, UNSPECIFIED - Discharge Disposition: Home, Self-Care Condition: Good Prescriptions: New Lactobacillus Acidophilus [Acidophilus TABLET] 1 tab PO TID #30 tablet Smz/Tmp Ds Tablet [Bactrim Ds Tablet] 1 tab PO Q12H 7 Days #14 tablet Follow up with: JOO STAPLETON [ACTIVE STAFF] -
[2021-07-22] MEDS: ROCEPHIN 1 Gm-D5w 50 ml Bag** 1 G/50 ML IVPB IV SCH (08:57)
== END 2021-07-22 10:20 | disposition home or self-care (01) ==
LOC: ED 06:36 → MED SURG 13:01
PROVIDERS: ADMIT Family Medicine; ATTEND Family Medicine
DX: N39.0 Urinary tract infection, site not specified (principal); N04.9 Nephrotic syndrome with unspecified morphologic changes; D72.829 Elevated white blood cell count, unspecified; R50.9 Fever, unspecified; Z72.0 Tobacco use; Z20.828 Contact with and (suspected) exposure to other viral communicable diseases; Z87.442 Personal history of urinary calculi
CPT/HCPCS: 0241U; 36000; 36415; 74177; 80048; 80053; 80307; 81015; 81025; 83690; 84484; 85025; 87077; 87086; 87186; 96360; 96365; 96374; 96375; 99285; 93268; J0696; J1885; J2270; J2405; A9270-GY; G0378

== ENCOUNTER 2021-07-27 15:01 | Observation (INO) | payer MEDICAID ==
[2021-07-27] MEDS ORDERED: MORPHINE SULFATE 10 MG/ML IV PRN (15:12)
[2021-07-27] MEDS: Merrem 1 GM in Sodium Chloride 100ML MINI-BAG PLUS 100 ML IV SCH ×2 (15:38→21:56)
[2021-07-27] MEDS ORDERED: Lactated Ringers 1,000 ML IV ONE (15:42)
[2021-07-27 15:55] LABS: INFLUENZA A NEGATIVE (NEGATIVE); INFLUENZA B NEGATIVE (NEGATIVE); RESPIRATORY SYNCTIAL VIRUS NEGATIVE (Negative); SARS-CoV-2 Xpert Express NEGATIVE (NEGATIVE)
[2021-07-27 16:00] LABS: Absolute Neutrophil Ct (ANC) 6.07 x10^3/uL (1.4-6.9); Basophil (Absolute #) 0.04 x10^3/uL (0-0.4); Eosinophil % 2.9 % (0.00-5.0); Eosinophil (Absolute #) 0.25 x10^3/uL (0-0.5); Hematocrit 39.3 % (35-47); Hemoglobin 13.5 g/dL (12.0-16.0); Lymphocyte (Absolute #) 1.75 x10^3/uL (1.0-4.6); Mean Cell Volume 93.8 fL (78-100); Mean Corpuscular Hemoglobin 32.2 pg (26-32); Mean Corpuscular Hgb Concent. 34.4 g/dL (32-36); Mean Platelet Volume 10.2 fL (7.5-11.0); Monocyte (Absolute #) 0.64 x10^3/uL (0.0-1.3); Monocytes % 7.3 % (0.0-12.0); Neutrophil % 69.1 % (36.0-66.0); Platelet Count 314 x10^3/uL (150-450); Red Blood Count 4.19 x10^6/uL (4.1-5.4); Red Cell Distribution Width 12.3 % (11.5-14.0); White Blood Count 8.8 x10^3/uL (4.0-10.5)
[2021-07-27] MEDS ORDERED: Lactated Ringers 1,000 ML IV SCH (16:00)
[2021-07-27 16:07] LABS: Appearance SLIGHTLY CLOUDY (CLEAR); Bacteria FEW /HPF (NEGATIVE); Bilirubin NEGATIVE (NEGATIVE); Epithelial Cells FEW /HPF (FEW); Glucose NEGATIVE (NEGATIVE); Ketones NEGATIVE (NEGATIVE); Mucus SLIGHT /HPF (NEGATIVE); Nitrite NEGATIVE (NEGATIVE); Protein,Urine Dip NEGATIVE (Negative); RBC NEGATIVE Ery/ul (0-5); Urobilinogen 0.2 mg/dL (0-1)
[2021-07-27 16:08] LABS: Dipstick done @ ? MAIN LAB; Urine Cultured Indicated? YES
[2021-07-27 16:15] LABS: ALBUMIN 3.7 g/dL (3.5-5.0); ALKALINE PHOSPHATASE 54 U/L (38-126); BLOOD UREA NITROGEN 6 mg/dL (7-17); CHLORIDE 104 mmol/L (98-107); Calcium 9.4 mg/dL (8.4-10.2); Carbon Dioxide 26 mmol/L (22-30); Creatinine 1 0.65 mg/dL (0.52-1.04); EST GLOMERULAR FILTRATION RATE > 60.0 ML/MIN; Glucose 86 mg/dL (74-106); Potassium 3.9 mmol/L (3.5-5.1); SGOT/AST 16 U/L (14-36); SGPT/ALT 10 U/L (0-35); SODIUM 138 mmol/L (137-145); Total Protein 6.5 g/dL (6.3-8.2)
[2021-07-27] MEDS ORDERED: Hydromorphone 1 mg/ml Injection IV PRN (16:35)
[2021-07-27] MEDS ORDERED: DILAUDID 1 MG/1ML PCA ONE (17:18)
[2021-07-27] MEDS: DILAUDID 1 MG/1ML PCA IV PRN (17:26)
[2021-07-27] MEDS ORDERED: TYLENOL 325 MG PO PRN (20:12)
[2021-07-27] MEDS: Zofran 4 MG/2 ML VIAL IV PRN (22:06)
[2021-07-28] MEDS: Lactated Ringers 1,000 ML IV SCH ×2 (04:03→14:04)
[2021-07-28] MEDS: Merrem 1 GM in Sodium Chloride 100ML MINI-BAG PLUS 100 ML IV SCH ×3 (06:16→22:26)
[2021-07-28 07:47] LABS: Hematocrit 37.4 % (35-47); Hemoglobin 12.4 g/dL (12.0-16.0); Mean Cell Volume 96.1 fL (78-100); Mean Corpuscular Hemoglobin 31.9 pg (26-32); Mean Corpuscular Hgb Concent. 33.2 g/dL (32-36); Platelet Count 220 x10^3/uL (150-450); Red Blood Count 3.89 x10^6/uL (4.1-5.4); White Blood Count 5.5 x10^3/uL (4.0-10.5)
[2021-07-28 08:02] LABS: ANION GAP 7.2 MEQ/L (5-15); BLOOD UREA NITROGEN 4 mg/dL (7-17); CHLORIDE 103 mmol/L (98-107); Calcium 8.5 mg/dL (8.4-10.2); Carbon Dioxide 30 mmol/L (22-30); Creatinine 1 0.63 mg/dL (0.52-1.04); EST GLOMERULAR FILTRATION RATE > 60.0 ML/MIN; Glucose 90 mg/dL (74-106); SODIUM 136 mmol/L (137-145)
--- NOTE | 2021-07-28 08:37 | XRAY ---
Indication: Right flank pain. Pyelonephritis. History kidney stone. Multiple contiguous axial images obtained through the abdomen and pelvis prior to and following 80 cc Isovue 370 contrast as ordered. Comparison: July 20, 2021 Lung bases remain clear. Heart not enlarged. Noncontrasted images are negative for pathologic visceral calcification/calculi. Noncontrasted stomach and bowel loops appear nonobstructed with normal appendix. New small cul-de-sac free fluid presumed physiologic from rupture/leaking cyst. No free air. Postcontrast images demonstrates normal visceral enhancement and renal excretion. Previous right renal nephronia has resolved. Remaining liver, gallbladder, pancreas, spleen, adrenal glands, kidneys, ureters, bladder, uterus, and aorta are unremarkable. No pathologic retroperitoneal lymphadenopathy. Impression: 1. Negative pathologic visceral calcifications/calculi. 2. New physiologic cul-de-sac fluid. 3. Remaining CT abdomen/pelvis with and without contrast exam is negative.
--- NOTE | 2021-07-28 09:31 | PCM.NOTE ---
Date and Time: 07/28/21929 Subjective Assessment: patient reports pain is improved, essentially using [employer] when she wakes up. she is afebrile Objective Exam General Appearance: no apparent distress Respiratory Exam: normal breath sounds, lungs clear, No respiratory distress Cardiovascular Exam: regular rate/rhythm, normal heart sounds Gastrointestinal/Abdomen Exam: soft, No tenderness, No mass Back Exam: CVA tenderness (right) OBJECTIVE DATA Vital Signs: Vital Signs - 24 hr Temp Pulse Resp BP Pulse Ox 07/28/21 07:39 99.5 F 74 13 114/70 98 07/28/21 03:59 99.1 F 72 15 112/72 97 07/27/21 23:34 98.9 F 70 15 102/55 98 07/27/21 20:00 99.8 F 62 17 117/73 96 07/27/21 15:53 96.8 F 65 20 106/60 96 Pain Assessment - Last Documented Pain Intensity 2 Pain Scale Used 0-10 Pain Scale Intake and Output: Intake & Output 07/25/21 07/26/21 07/27/21 07/28/21 11:59 11:59 11:59 11:59 Intake Total 1080 Output Total 500 Balance 580 Weight 60.328 kg Lab Results: Lab Results-Last 24 Hours 07/27/21 07/27/21 07/27/21 Range/Units 15:00 15:30 15:32 WBC 8.8 (4.0-10.5) x10^3/uL RBC 4.19 (4.1-5.4) x10^6/uL Hgb 13.5 (12.0-16.0) g/dL Hct 39.3 (35-47) % MCV 93.8 (78-100) fL MCH 32.2 H (26-32) pg MCHC 34.4 (32-36) g/dL RDW 12.3 (11.5-14.0) % Plt Count 314 (150-450) x10^3/uL MPV 10.2 (7.5-11.0) fL Gran % 69.1 H (36.0-66.0) % Immature Gran % (Auto) 0.2 (0.00-0.4) % Nucleat RBC Rel Count 0.0 (0.00-0.1) % Eos # (Auto) 0.25 (0-0.5) x10^3/uL Immature Gran # (Auto) 0.02 (0.00-0.03) x10^3u/L Absolute Lymphs (auto) 1.75 (1.0-4.6) x10^3/uL Absolute Monos (auto) 0.64 (0.0-1.3) x10^3/uL Absolute Nucleated RBC 0.00 (0.00-0.01) x10^3u/L Lymphocytes % 20.0 L (24.0-44.0) % Monocytes % 7.3 (0.0-12.0) % Eosinophils % 2.9 (0.00-5.0) % Basophils % 0.5 (0.0-0.4) % Absolute Granulocytes 6.07 (1.4-6.9) x10^3/uL Basophils # 0.04 (0-0.4) x10^3/uL Sodium 138 (137-145) mmol/L Potassium 3.9 (3.5-5.1) mmol/L Chloride 104 (98-107) mmol/L Carbon Dioxide 26 (22-30) mmol/L Anion Gap 12.0 (5-15) MEQ/L BUN 6 L (7-17) mg/dL Creatinine 0.65 (0.52-1.04) mg/dL Estimated GFR > 60.0 ML/MIN Glucose 86 (74-106) mg/dL Lactic Acid (0.4-2.0) Calcium 9.4 (8.4-10.2) mg/dL Total Bilirubin 0.70 (0.2-1.3) mg/dL AST 16 (14-36) U/L ALT 10 (0-35) U/L Alkaline Phosphatase 54 (38-126) U/L Serum Total Protein 6.5 (6.3-8.2) g/dL Albumin 3.7 (3.5-5.0) g/dL Urinalys Dipstick Clnc Urine Color (YELLOW) Urine Appearance (CLEAR) Urine pH (5-6) Ur Specific [place] (1.005-1.025) POC Urine Protein Conf (Negative) Urine Ketones (NEGATIVE) Urine Nitrite (NEGATIVE) Urine Bilirubin (NEGATIVE) Urine Urobilinogen (0-1) mg/dL Urine Leukocytes (NEGATIVE) Urine WBC (Auto) (0-5) /HPF Urine RBC (Auto) (0-2) /HPF U Epithel Cells (Auto) (FEW) /HPF Urine Bacteria (Auto) (NEGATIVE) /HPF Urine RBC (0-5) Drew/ul Urine Mucus (Auto) (NEGATIVE) /HPF Ur Culture Indicated? Urine Glucose (NEGATIVE) mg/dL Influenza Type A Ag NEGATIVE (NEGATIVE) Influenza Type B Ag NEGATIVE (NEGATIVE) RSV (PCR) NEGATIVE (Negative) SARS-CoV-2 (PCR) NEGATIVE (NEGATIVE) 07/27/21 07/27/21 07/28/21 Range/Units 15:49 16:00 07:40 WBC 5.5 (4.0-10.5) x10^3/uL RBC 3.89 L (4.1-5.4) x10^6/uL Hgb 12.4 (12.0-16.0) g/dL Hct 37.4 (35-47) % MCV 96.1 (78-100) fL MCH 31.9 (26-32) pg MCHC 33.2 (32-36) g/dL RDW 12.0 (11.5-14.0) % Plt Count 220 (150-450) x10^3/uL MPV 9.0 (7.5-11.0) fL Gran % (36.0-66.0) % Immature Gran % (Auto) (0.00-0.4) % Nucleat RBC Rel Count (0.00-0.1) % Eos # (Auto) (0-0.5) x10^3/uL Immature Gran # (Auto) (0.00-0.03) x10^3u/L Absolute Lymphs (auto) (1.0-4.6) x10^3/uL Absolute Monos (auto) (0.0-1.3) x10^3/uL Absolute Nucleated RBC (0.00-0.01) x10^3u/L Lymphocytes % (24.0-44.0) % Monocytes % (0.0-12.0) % Eosinophils % (0.00-5.0) % Basophils % (0.0-0.4) % Absolute Granulocytes (1.4-6.9) x10^3/uL Basophils # (0-0.4) x10^3/uL Sodium (137-145) mmol/L Potassium (3.5-5.1) mmol/L Chloride (98-107) mmol/L Carbon Dioxide (22-30) mmol/L Anion Gap (5-15) MEQ/L BUN (7-17) mg/dL Creatinine (0.52-1.04) mg/dL Estimated GFR ML/MIN Glucose (74-106) mg/dL Lactic Acid 1.3 (0.4-2.0) Calcium (8.4-10.2) mg/dL Total Bilirubin (0.2-1.3) mg/dL AST (14-36) U/L ALT (0-35) U/L Alkaline Phosphatase (38-126) U/L Serum Total Protein (6.3-8.2) g/dL Albumin (3.5-5.0) g/dL Urinalys Dipstick Clnc MAIN LAB Urine Color YELLOW (YELLOW) Urine Appearance SLIGHTLY CLOUDY (CLEAR) Urine pH 7.0 (5-6) Ur Specific [place] 1.020 (1.005-1.025) POC Urine Protein Conf NEGATIVE (Negative) Urine Ketones NEGATIVE (NEGATIVE) Urine Nitrite NEGATIVE (NEGATIVE) Urine Bilirubin NEGATIVE (NEGATIVE) Urine Urobilinogen 0.2 (0-1) mg/dL Urine Leukocytes SMALL (NEGATIVE) Urine WBC (Auto) 6-10 (0-5) /HPF Urine RBC (Auto) 3-5 (0-2) /HPF U Epithel Cells (Auto) FEW (FEW) /HPF Urine Bacteria (Auto) FEW (NEGATIVE) /HPF Urine RBC NEGATIVE (0-5) Drew/ul Urine Mucus (Auto) SLIGHT (NEGATIVE) /HPF Ur Culture Indicated? YES Urine Glucose NEGATIVE (NEGATIVE) mg/dL Influenza Type A Ag (NEGATIVE) Influenza Type B Ag (NEGATIVE) RSV (PCR) (Negative) SARS-CoV-2 (PCR) (NEGATIVE) 07/28/21 Range/Units 07:40 WBC (4.0-10.5) x10^3/uL RBC (4.1-5.4) x10^6/uL Hgb (12.0-16.0) g/dL Hct (35-47) % MCV (78-100) fL MCH (26-32) pg MCHC (32-36) g/dL RDW (11.5-14.0) % Plt Count (150-450) x10^3/uL MPV (7.5-11.0) fL Gran % (36.0-66.0) % Immature Gran % (Auto) (0.00-0.4) % Nucleat RBC Rel Count (0.00-0.1) % Eos # (Auto) (0-0.5) x10^3/uL Immature Gran # (Auto) (0.00-0.03) x10^3u/L Absolute Lymphs (auto) (1.0-4.6) x10^3/uL Absolute Monos (auto) (0.0-1.3) x10^3/uL Absolute Nucleated RBC (0.00-0.01) x10^3u/L Lymphocytes % (24.0-44.0) % Monocytes % (0.0-12.0) % Eosinophils % (0.00-5.0) % Basophils % (0.0-0.4) % Absolute Granulocytes (1.4-6.9) x10^3/uL Basophils # (0-0.4) x10^3/uL Sodium 136 L (137-145) mmol/L Potassium 4.0 (3.5-5.1) mmol/L Chloride 103 (98-107) mmol/L Carbon Dioxide 30 (22-30) mmol/L Anion Gap 7.2 (5-15) MEQ/L BUN 4 L (7-17) mg/dL Creatinine 0.63 (0.52-1.04) mg/dL Estimated GFR > 60.0 ML/MIN Glucose 90 (74-106) mg/dL Lactic Acid (0.4-2.0) Calcium 8.5 (8.4-10.2) mg/dL Total Bilirubin (0.2-1.3) mg/dL AST (14-36) U/L ALT (0-35) U/L Alkaline Phosphatase (38-126) U/L Serum Total Protein (6.3-8.2) g/dL Albumin (3.5-5.0) g/dL Urinalys Dipstick Clnc Urine Color (YELLOW) Urine Appearance (CLEAR) Urine pH (5-6) Ur Specific [place] (1.005-1.025) POC Urine Protein Conf (Negative) Urine Ketones (NEGATIVE) Urine Nitrite (NEGATIVE) Urine Bilirubin (NEGATIVE) Urine Urobilinogen (0-1) mg/dL Urine Leukocytes (NEGATIVE) Urine WBC (Auto) (0-5) /HPF Urine RBC (Auto) (0-2) /HPF U Epithel Cells (Auto) (FEW) /HPF Urine Bacteria (Auto) (NEGATIVE) /HPF Urine RBC (0-5) Drew/ul Urine Mucus (Auto) (NEGATIVE) /HPF Ur Culture Indicated? Urine Glucose (NEGATIVE) mg/dL Influenza Type A Ag (NEGATIVE) Influenza Type B Ag (NEGATIVE) RSV (PCR) (Negative) SARS-CoV-2 (PCR) (NEGATIVE) Radiology Exams: Radiology Procedures Category Date Time Status ABDOMEN AND PELVIS W&WO CONTRA [CT] Stat Exams 07/27/21 15:30 Completed Assessment/Plan (1) Acute pyelonephritis Current Visit: Yes Status: Acute Assessment & Plan: on meropenem based on previous culture, wbc normal and patient currently afebrlie but has had 99.5 temp. will continue IV fluids and meropenem, discussed stopping [employer] to see if pain can be controlled orally, potentially home tomorrow if continues to improve and remains afebrile. Code(s): N10 - ACUTE PYELONEPHRITIS (2) Failure of outpatient treatment Current Visit: Yes Status: Acute Code(s): Z78.9 - OTHER SPECIFIED HEALTH STATUS
[2021-07-28] MEDS: HYDROCODONE-ACETAMIN 10-325 MG PO PRN ×3 (09:50→19:49)
[2021-07-28] MEDS: Zofran 4 MG/2 ML VIAL IV PRN (09:51)
[2021-07-28] MEDS: DILAUDID 1 MG/1ML PCA IV PRN (10:04)
[2021-07-29] MEDS: Lactated Ringers 1,000 ML IV SCH (01:37)
[2021-07-29 04:56] LABS: Absolute Neutrophil Ct (ANC) 1.26 x10^3/uL (1.4-6.9); Basophil (Absolute #) 0.03 x10^3/uL (0-0.4); Eosinophil % 7.7 % (0.00-5.0); Eosinophil (Absolute #) 0.34 x10^3/uL (0-0.5); Hematocrit 36.4 % (35-47); Hemoglobin 12.3 g/dL (12.0-16.0); Lymphocyte (Absolute #) 2.22 x10^3/uL (1.0-4.6); Lymphocytes % 50.5 % (24.0-44.0); Mean Cell Volume 94.5 fL (78-100); Mean Corpuscular Hemoglobin 31.9 pg (26-32); Mean Corpuscular Hgb Concent. 33.8 g/dL (32-36); Mean Platelet Volume 9.3 fL (7.5-11.0); Monocyte (Absolute #) 0.54 x10^3/uL (0.0-1.3); Monocytes % 12.3 % (0.0-12.0); Neutrophil % 28.6 % (36.0-66.0); Platelet Count 243 x10^3/uL (150-450); Red Blood Count 3.85 x10^6/uL (4.1-5.4); Red Cell Distribution Width 12.1 % (11.5-14.0); White Blood Count 4.4 x10^3/uL (4.0-10.5)
[2021-07-29 05:12] LABS: ALKALINE PHOSPHATASE 51 U/L (38-126); ANION GAP 8.2 MEQ/L (5-15); BLOOD UREA NITROGEN 5 mg/dL (7-17); CHLORIDE 102 mmol/L (98-107); Calcium 8.6 mg/dL (8.4-10.2); Carbon Dioxide 31 mmol/L (22-30); Creatinine 1 0.62 mg/dL (0.52-1.04); EST GLOMERULAR FILTRATION RATE > 60.0 ML/MIN; Glucose 85 mg/dL (74-106); SGOT/AST 17 U/L (14-36); SGPT/ALT 9 U/L (0-35); SODIUM 136 mmol/L (137-145); Total Protein 5.7 g/dL (6.3-8.2)
[2021-07-29] MEDS: Merrem 1 GM in Sodium Chloride 100ML MINI-BAG PLUS 100 ML IV SCH (06:12)
[2021-07-29] MEDS: HYDROCODONE-ACETAMIN 10-325 MG PO PRN (07:40)
[2021-07-29 07:59] VITALS: BP 114/57; PULSE 57; O2SAT 98
--- NOTE | 2021-07-29 08:33 | PCM.DS ---
Discharge Summary Date of Admission: 07/27/21 15:01 Admitting Physician: JOO STAPLETON Primary Care Provider: NO FAMILY DOCTOR Allergies Allergies sodium bicarbonate [From Nasa Mist] Adverse Reaction (Severe, Verified 07/20/21 06:52) sodium chloride [From Nasa Mist] Adverse Reaction (Severe, Verified 07/20/21 06:52) Hospital Summary - Hospital Course Hospital Course: patient admitted with acute pyelonephritis, direct admit following recent hospital stay. has been afebrile since admission, wbc normal and pain controlled with norco and taking regular diet po - Vitals & Intake/Output Vital Signs: Vital Signs Temperature 98.6 F 07/29/21 07:59 Pulse Rate 57 L 07/29/21 07:59 Respiratory Rate 16 07/29/21 07:59 Blood Pressure 114/57 07/29/21 07:59 O2 Sat by Pulse Oximetry 98 07/29/21 07:59 Intake & Output: Intake & Output 07/26/21 07/27/21 07/28/21 07/29/21 11:59 11:59 11:59 11:59 Intake Total 1080 3011 Output Total 500 2700 Balance 580 311 Weight 60.328 kg - Lab Result Diagrams: 07/29/21 04:42 07/29/21 04:42 Lab Results-Last 24 Hrs: Lab Results-Last 24 Hours 07/28/21 07/29/21 07/29/21 Range/Units 07:40 04:42 04:42 WBC 4.4 (4.0-10.5) x10^3/uL RBC 3.85 L (4.1-5.4) x10^6/uL Hgb 12.3 (12.0-16.0) g/dL Hct 36.4 (35-47) % MCV 94.5 (78-100) fL MCH 31.9 (26-32) pg MCHC 33.8 (32-36) g/dL RDW 12.1 (11.5-14.0) % Plt Count 243 (150-450) x10^3/uL MPV 9.3 (7.5-11.0) fL Gran % 28.6 L (36.0-66.0) % Immature Gran % (Auto) 0.2 (0.00-0.4) % Nucleat RBC Rel Count 0.0 (0.00-0.1) % Eos # (Auto) 0.34 (0-0.5) x10^3/uL Immature Gran # (Auto) 0.01 (0.00-0.03) x10^3u/L Absolute Lymphs (auto) 2.22 (1.0-4.6) x10^3/uL Absolute Monos (auto) 0.54 (0.0-1.3) x10^3/uL Absolute Nucleated RBC 0.00 (0.00-0.01) x10^3u/L Lymphocytes % 50.5 H (24.0-44.0) % Monocytes % 12.3 H (0.0-12.0) % Eosinophils % 7.7 H (0.00-5.0) % Basophils % 0.7 (0.0-0.4) % Absolute Granulocytes 1.26 L (1.4-6.9) x10^3/uL Basophils # 0.03 (0-0.4) x10^3/uL Sodium 136 L 136 L (137-145) mmol/L Potassium 4.0 4.0 (3.5-5.1) mmol/L Chloride 103 102 (98-107) mmol/L Carbon Dioxide 30 31 H (22-30) mmol/L Anion Gap 7.2 8.2 (5-15) MEQ/L BUN 4 L 5 L (7-17) mg/dL Creatinine 0.63 0.62 (0.52-1.04) mg/dL Estimated GFR > 60.0 > 60.0 ML/MIN Glucose 90 85 (74-106) mg/dL Calcium 8.5 8.6 (8.4-10.2) mg/dL Total Bilirubin 0.70 (0.2-1.3) mg/dL AST 17 (14-36) U/L ALT 9 (0-35) U/L Alkaline Phosphatase 51 (38-126) U/L Serum Total Protein 5.7 L (6.3-8.2) g/dL Albumin 3.0 L (3.5-5.0) g/dL Micro Results-Entire Visit: Microbiology 07/27/21 16:00 Urine Culture - Preliminary Clean Catch Midstream NO GROWTH TO DATE - Radiology Exams Ordered Rad Exams-Entire Visit: Radiology Procedures Category Date Time Status ABDOMEN AND PELVIS W&WO CONTRA [CT] Stat Exams 07/27/21 15:30 Completed - Procedures and Test Procedures and Tests throughout Hospitalization: Therapy Orders & Screens 07/27/21 16:13 Smoking Cessation Education ONCE Comment: Diagnosis: ACUTE PYELONEPHRITIS Smoking Status: Current every day smoker How long have you smoked: 1 yr Do you dip or chew tobacco: No Discharge Exam General Appearance: no apparent distress, alert Eye Exam: PERRL, EOMI, eyes nml inspection Respiratory Exam: normal breath sounds, lungs clear, No respiratory distress Cardiovascular Exam: regular rate/rhythm, normal heart sounds Gastrointestinal/Abdomen Exam: soft, No tenderness, No mass Final Diagnosis/Problem List - Final Discharge Diagnosis/Problem (1) Acute pyelonephritis Current Visit: Yes Status: Acute Assessment & Plan: home on po levaquin x 7 days, norco for pain Code(s): N10 - ACUTE PYELONEPHRITIS (2) Failure of outpatient treatment Current Visit: Yes Status: Acute Code(s): Z78.9 - OTHER SPECIFIED HEALTH STATUS - Discharge Disposition: Home, Self-Care Condition: Stable Prescriptions: New Hydrocodone/Acetaminophen [Hydrocodone-Acetamin 10-325 mg] 1 tablet PO Q6H PRN PRN #28 tablet MDD 4 PRN Reason: Pain Levofloxacin [Levofloxacin 500 MG Tablet] 500 mg PO DAILY #7 tablet Follow up with: JOO STAPLETON [ACTIVE STAFF] - 1 Week
== END 2021-07-29 09:26 | disposition home or self-care (01) ==
LOC: INTOOBSV 15:01 → OBSVTOIN 15:01 → MED SURG 15:01
PROVIDERS: ADMIT Family Medicine; ATTEND Family Medicine
DX: N10 Acute pyelonephritis (principal); Z78.9 Other specified health status; Z20.828 Contact with and (suspected) exposure to other viral communicable diseases
CPT/HCPCS: 0241U; 36415; 74178; 80048; 80053; 81015; 83605; 85025; 85027; 87086; G0378; J1170; J2270; J2405; A9270-GY

== ENCOUNTER 2021-09-11 20:16 | Emergency (ER) | payer MEDICAID ==
[2021-09-11] MEDS ORDERED: TORAdol 30 mg Injection IM ONE (20:47)
[2021-09-11] MEDS ORDERED: BACTRIM DS TABLET PO STA (20:47)
[2021-09-11] MEDS ORDERED: Adacel Vial IM ONE ×2 (20:48→20:49)
[2021-09-11] MEDS ORDERED: TORAdol 30 mg Injection ONE (20:49)
[2021-09-11] MEDS ORDERED: BACTRIM DS TABLET PO ONE (20:49)
--- NOTE | 2021-09-11 21:02 | ERPHSYRPT ---
- History of Present Illness Time Seen by Provider: 09/11/21 20:27 Source: patient Exam Limitations: no limitations Patient Subjective Stated Complaint: pt states she stepped on something with a piece of metal sticking up off it and thinks the metal went through her foot. Triage Nursing Assessment: pt alert and oriented, answers questions approp. pt back to room per wheelchair. transfers to stretcher per self. respirations nonlabored skin warm and dry. open area to bottom of heel on rt foot with minimal bleeding noted. small open area to medial rt heel with minimal bleeding. Physician History: 20 years old female presented in the ER when she stepped on a sharp metal object barefoot which went through the medial aspect of right heel area and came out on the medial aspect of calcaneum. Complaining of moderate intensity sharp pain which is aggravated with weightbearing and better with ice and being off weight. Timing/Duration: today, sudden Quality: painful Severity: moderate Location: feet Possible Causes: other Allergies/Adverse Reactions: sodium bicarbonate [From Nasa Mist] Adverse Reaction (Severe, Verified 09/11/21 20:35) sodium chloride [From Nasa Mist] Adverse Reaction (Severe, Verified 09/11/21 20:35) Hx Tetanus, Diphtheria Vaccination/Date Given: No (unsure) Hx Influenza Vaccination/Date Given: No Hx Pneumococcal Vaccination/Date Given: No Immunizations Up to Date: No Travel Risk - International Travel Have you traveled outside of the country in past 3 weeks: No - Coronavirus Screening Are you exhibiting any of the following symptoms?: No Close contact with a COVID-19 positive Pt in past 14-21 Days: No - Vaccine Status Have you recieved a Covid-19 vaccination: No - Review of Systems Constitutional: No Symptoms Respiratory: No Symptoms Cardiac: No Symptoms Musculoskeletal: Injury Skin: Skin Lesions Neurological: No Symptoms Endocrine: No Symptoms Hematologic/Lymphatic: No Symptoms Immunological/Allergic: No Symptoms - Past Medical History Pertinent Past Medical History: Yes Neurological History: No Pertinent History ENT History: No Pertinent History Cardiac History: No Pertinent History Respiratory History: No Pertinent History Endocrine Medical History: No Pertinent History Musculoskeletal History: Fractures GI Medical History: No Pertinent History History: Other Psycho-Social History: Anxiety, Depression Female Reproductive Disorders: No Pertinent History Other Medical History: kidney stones as child. was recently admitted for kidney problems - Past Surgical History Past Surgical History: Yes Musculoskeletal: Orthopedic Surgery Other Surgical History: rt ankle surgery, kidney stone removal - Social History Smoking Status: Current every day smoker How long have you smoked: 1 yr Exposure to second hand smoke: Yes Drug Use: none Patient Lives Alone: No - Female History Hx Last Menstrual Period: 2 weeks Hx Now: No - Nursing Vital Signs Nursing Vital Signs: Initial Vital Signs Temperature 98.1 F 09/11/21 20:23 Pulse Rate 92 H 09/11/21 20:23 Respiratory Rate 16 09/11/21 20:23 Blood Pressure 135/79 09/11/21 20:23 O2 Sat by Pulse Oximetry 98 09/11/21 20:23 Pain Scale Pain Intensity 4 - Physical Exam General Appearance: no apparent distress Eye Exam: PERRL/EOMI Neck Exam: normal inspection, full range of motion Respiratory Exam: normal breath sounds, lungs clear Cardiovascular Exam: regular rate/rhythm, normal heart sounds Extremity Exam: normal range of motion, penetrations (Right medial heel with entry on the sole and exit on the medial aspect of calcaneum. No active bleeding.), tenderness Neurologic Exam: alert, oriented x 3, cooperative Skin Exam: normal color SpO2 Interpretation: normal SpO2: 98 O2 Delivery: Room Air Ordered Tests: Active Orders 24 hr Category Date Time Status FOOT (MINIMUM 3 VIEWS) Stat Exams 09/11/21 20:23 Taken Medication Summary Discontinued Medications Generic Name Dose Route Start Last Admin Trade Name Obiq PRN Reason Stop Dose Admin Diphtheria/Tetanus/Acell Pertussis 0.5 ml 09/11/21 20:48 Tdap --Diph,Pertuss(Acell),Tet Vac/Pf 0.5 Ml Vial IM 09/11/21 20:49 .ONCE ONE Diphtheria/Tetanus/Acell Pertussis Confirm 09/11/21 20:49 Tdap --Diph,Pertuss(Acell),Tet Vac/Pf 0.5 Ml Vial Administered 09/11/21 20:50 Dose 0.5 ml IM .STK-MED ONE Ketorolac Tromethamine 30 mg 09/11/21 20:47 Ketorolac Tromethamine 30 Mg/Ml Inj IM 09/11/21 20:48 STAT ONE Ketorolac Tromethamine Confirm 09/11/21 20:49 Ketorolac Tromethamine 30 Mg/Ml Inj Administered 09/11/21 20:50 Dose 30 mg .ROUTE .STK-MED ONE Trimethoprim/Sulfamethoxazole 1 tab 09/11/21 20:47 Smz/Tmp Ds Tablet 1 Tablet PO 09/11/21 20:48 STAT STA Trimethoprim/Sulfamethoxazole Confirm 09/11/21 20:49 Smz/Tmp Ds Tablet 1 Tablet Administered 09/11/21 20:50 Dose 1 tab PO .STK-MED ONE - Progress Progress: improved, pain not gone completely Progress Note: 09/11/21 21:01 She is given Toradol for symptomatic relief. Tetanus is updated. Started on antibiotics. Wound cleaned and dressing applied. Recommended outpatient podiatry follow-up. X-rays reviewed by me negative for any acute fracture dislocation/foreign body reviewed by me. Official report is pending. 09/11/21 21:07 Counseled pt/family regarding: diagnosis, need for follow-up, rad results - Departure Departure Disposition: Home Clinical Impression: Puncture wound of foot Condition: Stable Critical Care Time: No Referrals: JOO STAPLETON [Primary Care Provider] - Follow Up with PCP/3 days LATRICE BINGHAM DPM [ACTIVE STAFF] - Follow up/PCP as directed Instructions: Taking Care of Cuts, Scrapes, and Puncture Wounds Additional Instructions: Weightbearing as tolerated. Tylenol/ibuprofen as needed for pain. Continue with antibiotics. Follow-up with primary care/podiatry for reevaluation. Return to ER for worsening pain swelling redness discharge/fever chills etc. Prescriptions: Ibuprofen 600 mg PO Q6HPRN PRN 10 Days #20 tablet PRN Reason: Pain Smz/Tmp Ds Tablet [Bactrim Ds Tablet] 1 udtab PO BID #14 tablet
[2021-09-11 21:16] VITALS: BP 130/82; PULSE 76; O2SAT 99
--- NOTE | 2021-09-12 07:25 | XRAY ---
Indication: Medial heel wound. Foreign body. Comparison: None 3 nonweightbearing views right foot negative for radiopaque foreign body. No bony, articular, or soft tissue abnormalities.
== END 2021-09-11 21:16 | disposition home or self-care (01) ==
LOC: ED 20:16
DX: S91.331A Puncture wound without foreign body, right foot, initial encounter (principal); W22.09XA Striking against other stationary object, initial encounter; W26.9XXA Contact with unspecified sharp object(s), initial encounter; M79.671 Pain in right foot; Z72.0 Tobacco use; Z28.310 Unvaccinated for COVID-19
CPT/HCPCS: 73630; 90471; 90715; 96372; 99283; J1885; A9270-GY

== ENCOUNTER 2022-04-02 10:20 | Emergency (ER) | payer MEDICAID ==
--- NOTE | 2022-04-02 10:26 | ERPHSYRPT ---
- History of Present Illness Time Seen by Provider: 04/02/22 10:26 Source: patient Exam Limitations: no limitations Physician History: This is a 21-year-old white female patient of Dr. Travis Parra who has a history of anxiety and depression issues and was at work earlier today and her and a coworker were discussing prior miscarriages that the had experienced in the past. This brought on severe anxiety in this patient. Patient is not suicidal and she is not homicidal. She is a daily smoker of cigarettes. She is here today because she feels she had a panic attack. Timing/Duration: today Severity of Symptoms-Max: mild Severity of Symptoms-Current: mild Context related to: other (Prior miscarriage experience) Suicidal thoughts: other (No suicidal or homicidal thoughts) Associated Symptoms: anxiety, depressed, No suicidal ideation Previous symptoms: same symptoms as today Allergies/Adverse Reactions: sodium bicarbonate [From Nasa Mist] Adverse Reaction (Severe, Verified 04/02/22 10:36) sodium chloride [From Nasa Mist] Adverse Reaction (Severe, Verified 04/02/22 10:36) Home Medications: Sertraline HCl [Zoloft] 25 mg PO DAILY 04/02/22 [History] Hx Tetanus, Diphtheria Vaccination/Date Given: No (unsure) Hx Influenza Vaccination/Date Given: No Hx Pneumococcal Vaccination/Date Given: No Travel Risk - International Travel Have you traveled outside of the country in past 3 weeks: No - Coronavirus Screening Are you exhibiting any of the following symptoms?: No Close contact with a COVID-19 positive Pt in past 14-21 Days: No - Vaccine Status Have you recieved a Covid-19 vaccination: No - Past Medical History Pertinent Past Medical History: Yes Neurological History: No Pertinent History ENT History: No Pertinent History Cardiac History: No Pertinent History Respiratory History: No Pertinent History Endocrine Medical History: No Pertinent History Musculoskeletal History: Fractures GI Medical History: No Pertinent History History: Other Psycho-Social History: Anxiety, Depression Female Reproductive Disorders: No Pertinent History Other Medical History: kidney stones as child. was recently admitted for kidney problems - Past Surgical History Past Surgical History: Yes Musculoskeletal: Orthopedic Surgery Other Surgical History: rt ankle surgery, kidney stone removal - Social History Smoking Status: Current every day smoker How long have you smoked: 1 yr Exposure to second hand smoke: Yes Drug Use: none Patient Lives Alone: No - Review of Systems Constitutional: No Symptoms Eyes: No Symptoms Ears, Nose, & Throat: No Symptoms Respiratory: No Symptoms Cardiac: No Symptoms Abdominal/Gastrointestinal: No Symptoms Genitourinary Symptoms: No Symptoms Musculoskeletal: No Symptoms Skin: No Symptoms Neurological: No Symptoms Psychological: Anxiety, Depression, No Suicidal Ideations, No Homicidal Ideations, No Hallucinations Endocrine: No Symptoms Hematologic/Lymphatic: No Symptoms Immunological/Allergic: No Symptoms All Other Systems: Reviewed and Negative - Nursing Vital Signs Nursing Vital Signs: Initial Vital Signs Temperature 98.1 F 04/02/22 10:24 Pulse Rate 107 H 04/02/22 10:24 Respiratory Rate 16 04/02/22 10:24 Blood Pressure 142/94 04/02/22 10:24 O2 Sat by Pulse Oximetry 100 04/02/22 10:24 Pain Scale Pain Intensity 0 - Physical Exam General Appearance: no apparent distress, alert, anxiety Eyes, Ears, Nose, Throat Exam: normal ENT inspection, moist mucous membranes Neck Exam: normal inspection, non-tender, supple, full range of motion Respiratory Exam: normal breath sounds, lungs clear, airway intact, No chest tenderness, No respiratory distress Cardiovascular Exam: regular rate/rhythm, normal heart sounds, normal peripheral pulses Gastrointestinal/Abdominal Exam: soft, normal bowel sounds, No tenderness Current Suicidality: denies suicide plan Neurological Exam: alert, antenna installer II-XII nml as tested, oriented x 3, anxious, depressed affect Appearance: appropriate appearance Behavior/Eye Contact/Speech: alert & cooperative, good eye contact, normal speech Thoughts/Hallucinations: normal thought pattern, no apparent hallucination Skin Exam: normal color, warm, dry SpO2 Interpretation: normal O2 Delivery: Room Air - Course Nursing assessment & vital signs reviewed: Yes Ordered Tests: Active Orders 24 hr Category Date Time Status HCG,QUALITATIVE URINE Stat Lab 04/02/22 10:58 Completed UA W/RFX UR CULTURE Stat Lab 04/02/22 10:58 Completed Medication Summary Discontinued Medications Generic Name Dose Route Start Last Admin Trade Name Lauro PRN Reason Stop Dose Admin Lorazepam 0.5 mg 04/02/22 11:31 04/02/22 11:44 Lorazepam 0.5 Mg Tablet PO 04/02/22 11:32 0.5 mg STAT ONE Administration Lorazepam Confirm 04/02/22 11:43 Lorazepam 1 Mg Tablet Administered 04/02/22 11:44 Dose 1 mg .ROUTE .STK-MED ONE Lab/Rad Data: Laboratory Results 04/02/22 04/02/22 Range/Units 10:58 10:58 Urine Color Yellow (Yellow) Urine Appearance Clear (Clear) Urine pH 7.5 (4.6-8.0) Ur Specific [place] 1.015 (1.005-1.030) Urine Protein Negative (Negative) Urine Glucose (UA) Negative (Negative) mg/dL Urine Ketones Negative (Negative) Urine Blood Negative (Negative) Urine Nitrite Negative (Negative) Urine Bilirubin Negative (Negative) Urine Urobilinogen 0.2 (0.2) mg/dL Ur Leukocyte Esterase Negative (Negative) U Hyaline Cast (Auto) NONE SEEN (0-2) /LPF Urine Microscopic RBC 0-2 (0-5) /HPF Urine Microscopic WBC 0-2 (0-5) /HPF Ur Epithelial Cells None Seen (None Seen) /HPF Urine Bacteria None Seen (None Seen) /HPF Urine Culture Reflexed NO (NO) Urine HCG, Qual NEGATIVE (Negative) - Progress Progress: improved Progress Note: 04/02/22 11:45 Patient's medical issue is 1 of low complexity. This is based on the patient's medical history, review of the patient's medication list and allergy list, complaint, past medical history and physical findings on examination. Based on the above, I ordered a urinalysis and urine test. I reviewed the results. The patient does not have a urinary tract infection and is not . I reviewed these issues with the patient. Discharge plan is for the patient to follow-up with her prescribing physician/provider on 04/04/2022 for further evaluation and management. Patient is to take her medication as prescribed. Counseled pt/family regarding: lab results, diagnosis, need for follow-up Medical Desision Making - Independent Historian Additional History obtained from: Mother - Discussion of managment Reviewed:: Test results Agreed on:: Treatment plan, need for follow-up - Diagnostic Testing Diagnostic test were ordered, analyzed, and reviewed by me: Yes - Risk of complications Minimal Risk: Minimal risk of morbidity - Departure Departure Disposition: Home Clinical Impression: Anxiety about health Condition: Stable Critical Care Time: No Referrals: JOO STAPLETON [Primary Care Provider] - Follow up/PCP as directed Additional Instructions: Take your medication as prescribed. Follow-up with your prescribing provider on 04/04/2022 to make an appointment for further evaluation and management.
[2022-04-02 10:36] VITALS: BP 142/94; PULSE 107; O2SAT 100
[2022-04-02 11:31] LABS: Appearance Clear (Clear); Bacteria None Seen /HPF (None Seen); Bilirubin Negative (Negative); Blood Negative (Negative); Epithelial Cells None Seen /HPF (None Seen); Glucose, Urine Negative (Negative); Hyaline Casts NONE SEEN /LPF (0-2); Ketones Negative (Negative); Leukocyte Esterase Negative (Negative); Nitrite Negative (Negative); Ph 7.5 (4.6-8.0); Protein,Urine Dip Negative (Negative); RBC 0-2 /HPF (0-5); Specific Gravity 1.015 (1.005-1.030); Urobilinogen 0.2 mg/dL (0.2); WBC 0-2 /HPF (0-5)
[2022-04-02] MEDS ORDERED: Ativan 0.5 MG PO ONE (11:31)
[2022-04-02 11:43] LABS: ADD URINE CULTURE? NO (NO)
[2022-04-02] MEDS ORDERED: Ativan 1 MG ONE (11:43)
== END 2022-04-02 11:58 | disposition home or self-care (01) ==
LOC: ED 10:20
DX: F45.9 Somatoform disorder, unspecified (principal); Z79.899 Other long term (current) drug therapy; Z28.310 Unvaccinated for COVID-19; Z72.0 Tobacco use
CPT/HCPCS: 81001; 81025; 99282; A9270-GY